=== PATIENT | male | born 1965 | race Asian ===

== ENCOUNTER 2024-10-07 12:05 | Emergency (ER) | payer MEDICAID, SELFPAY ==
[2024-10-07 12:06] VITALS: BMI 26.5
[2024-10-07 12:48] VITALS: BP 164/102; PULSE 142; RESP 20; TEMP 38.3; O2SAT 97; BMI 26.3
--- NOTE | 2024-10-07 12:58 | XR_ITS ---
Examination: PA lateral chest 2 views Technique: Upright PA lateral chest 2 views Exam date and time: October 07, 2024 1310 hrs. Comparison October 11, 2023 Indications: Coughing today Findings: Moderate enlargement left ventricle Ectatic enlarged thoracic aorta Prominent central pulmonary vasculature No lobar pneumonia Orthopedic screws overlie both shoulders with advanced right glenohumeral joint osteoarthritis Impression: Moderate enlargement left ventricle No lobar pneumonia or mayra pulmonary edema
--- NOTE | 2024-10-07 13:02 | PD.EDURI ---
Upper Respiratory Inf. RME/HPI General Chief Complaint: Flu Like Symptoms Stated Complaint: HEADACHE FEVER BODYACHE Time Seen by Provider: 10/07/24 12:28 Arrival date/time: 10/07/24 12:05 RME / HPI RME / HPI Narrative: 59-year-old male patient with significant history of congestive heart failure hypertension, came in for evaluation regarding flulike symptoms. Patient has been having headache, sore throat, nasal congestion, nonproductive cough, fever, for the last 2 days. Patient also complained of bodyaches. Denies any ill contacts. Denies any other complaints denies any swelling to the bilateral leg. Denies any shortness of breath. Denies any orthopnea or dyspnea on exertion. Related Data Previous Rx's ?Medication ?Instructions ?Recorded carvedilol 25 mg tablet (Coreg) 25 mg PO Q12H #60 tabs 09/28/23 dapagliflozin propanediol 5 mg 10 mg (2 x 5 mg) PO QAM #30 tabs 09/28/23 tablet (Farxiga) lisinopril 20 mg tablet 20 mg PO QDAY #30 tabs 09/28/23 furosemide 20 mg tablet (Lasix) 20 mg PO QAM #30 tabs 10/02/23 Allergies Allergy/AdvReac Type Severity Reaction Status Date / Time No Known Allergies Allergy Verified 10/07/24 12:07 Review of Systems Review of Systems Narrative Review of Systems: Review of system reviewed and within normal limits except mentioned in HPI ED Exam Narrative Physical exam: VITAL SIGNS: Reviewed. GENERAL APPEARANCE: Alert and interactive, follows commands, no acute distress, HEAD AND FACE: Non-traumatic. ENT: PERRL, pink conjunctivitis, eyelid no trauma, Mucous membrane moist. NECK: Supple, nontender, no nuchal rigidity. CHEST: No tenderness, no crepitus, no paradoxical movement, no retractions. LUNGS: Clear, well ventilated, symmetric, no rales, no wheezing, no ronchi, no stridor, good breath sounds bilaterally. HEART: Regular rate, regular rhythm, no murmur, no gallops. ABDOMEN: Soft, positive bowel sounds, nondistended, no guarding, nontender, no rebound, no masses, RECTAL: Deferred. GENITAL: Deferred. NEUROLOGICAL: Gross motor function intact sensory function intact, Appropriate for age. MUSCULOSKELETAL: low back nontender, full range of motion. EXTREMITIES: Nontender, full range of motion. SKIN: Color pink, dry, no rash, no lacerations, no abrasions, no contusions. LYMPHATICS: Deferred. Course Quality Measures none Orders Category Date Time Status Bedside COVID-19 Antigen Test NOW Care 10/07/24 13:01 Completed Bedside Influenza A&B Antigen Test NOW Care 10/07/24 13:01 Completed XR chest 2V Stat Exams 10/07/24 12:58 Completed Acetaminophen Tab [Tylenol ES Tab] Med 10/07/24 13:01 Discontinued 1,000 mg PO X1 ONE Oseltamivir [Tamiflu] Med 10/07/24 14:41 Discontinued 75 mg PO X1 ONE predniSONE Med 10/07/24 13:01 Discontinued 60 mg PO X1 ONE Vital Signs Vital signs: Vital Signs Temperature 100.9 F H 10/07/24 12:48 Pulse Rate 142 H 10/07/24 12:48 Respiratory Rate 20 10/07/24 12:48 Blood Pressure 164/102 H 10/07/24 12:48 Pulse Oximetry (%) 97 10/07/24 12:48 Oxygen Delivery Method Room Air 10/07/24 12:48 Upper Respiratory Infection MDM Narrative MDM Narrative:: 59-year-old male patient with significant history of congestive heart failure hypertension, came in for evaluation regarding flulike symptoms. Patient has been having headache, sore throat, nasal congestion, nonproductive cough, fever, for the last 2 days. Patient also complained of bodyaches. Denies any ill contacts. Denies any other complaints denies any swelling to the bilateral leg. Denies any shortness of breath. Denies any orthopnea or dyspnea on exertion. Patient tested positive for influenza. Patient eloped from the emergency room Patient data External records reviewed:: None Clinical information provided by:: patient Social determinants that could affect healthcare access:: none Patient has the following chronic illnesses:: Congestive heart failure hypertension How is presenting disease/condition affected by chronic disease/condition?: exacerbated by Evaluation data The following diagnostics were reviewed and interpreted by me:: lab results and radiology exam(s) Lab and/or radiology exams considered but not ordered:: None tested plus Interpretation Summary: Due for influenza. Chest x-ray came back unremarkable. Medications / Prescriptions Medications or Prescriptions considered but not ordered:: None Medication administrations:: Medication Administration History Discontinued Medications Acetaminophen (Acetaminophen 500 Mg Tablet) 1,000 mg PO X1 ONE Stop: 10/07/24 13:02 Last Admin: 10/07/24 13:59 Dose: 1,000 mg Documented By: Oseltamivir Phosphate (Oseltamivir 75 Mg Capsule) 75 mg PO X1 ONE Stop: 10/07/24 14:42 Last Admin: 10/07/24 16:25 Dose: Not Given Documented By: Non-Admin Reason: Other, see note Prednisone (Prednisone 20 Mg Tablet) 60 mg PO X1 ONE Stop: 10/07/24 13:02 Last Admin: 10/07/24 13:59 Dose: 60 mg Documented By: Tamiflu prednisone and Tylenol Consultations Consultation(s) initiated? (list below): No Diagnosis Upper Respiratory Differential Diagnosis: upper respiratory infection, viral infection and influenza Most likely diagnosis given after review of the tests above:: Influenza Admission Indicated Admission indicated?: not indicated ([facility]op[facility]) Admission Request Was there a request for admission?: No Disposition Plan Disposition Plan: other (specify) Discharge Plan Plan Patient Disposition: Elopement Prescriptions/Referrals Prescriptions/Med Rec: No Action Farxiga 5 mg Tablet 10 mg PO QAM Qty: 30 3RF lisinopril 20 mg tablet 20 mg PO QDAY Qty: 30 3RF Hold Instructions: Resume on 10/05/23. carvedilol [Coreg] 25 mg tablet 25 mg PO Q12H Qty: 60 3RF Rx Instructions: must administer with a meal/food furosemide [Lasix] 20 mg tablet 20 mg PO QAM Qty: 30 0RF Referrals: Chris Gonzales PA-C [Primary Care Provider] - In 1 week Problem List Clinical Impression: Influenza Patient/Caregiver Discharge Instructions Print Language: Venezuelan
[2024-10-07 13:59] VITALS: TEMP 38.3
[2024-10-07] MEDS: ACETAMINOPHEN 500 MG TABLET 1000 MG PO (13:59)
[2024-10-07] MEDS: predniSONE 20 MG TABLET 60 MG PO (13:59)
--- NOTE | 2024-10-07 15:45 | PC.NURSE ---
called from lobby for re-eval and no answer
== END 2024-10-07 16:26 | disposition left against medical advice (07) ==
LOC: SERX 13:01
PROVIDERS: Emergency Provider Emergency Medicine; PCP Physician Assistant
DX: J11.1 Influenza due to unidentified influenza virus with other respiratory manifestations (principal); I11.0 Hypertensive heart disease with heart failure; I50.9 Heart failure, unspecified
CPT/HCPCS: 71046; 87400; 87811; 99281; J7512; A9270

== ENCOUNTER 2024-12-12 06:22 | Emergency (ER) | payer MEDICAID, SELFPAY ==
[2024-12-12 06:23] VITALS: BMI 28.3
--- NOTE | 2024-12-12 06:37 | XR_ITS ---
Examination: Foot, left, 3 views Technique: AP, oblique, lateral views foot, 3 views Date and time of exam: December 12, 2024, 0701 hours INDICATIONS: Twisting injury to the foot 2 days ago, foot pain FINDINGS: Prominent hallux valgus bunion deformity Mild subluxation at the proximal interphalangeal joint fifth digit Erosion distal first metatarsal No acute fracture IMPRESSION: No acute fracture Erosion distal first metatarsal, seen with osteomyelitis or gouty arthropathy, clinical correlation advised Subluxation at the interphalangeal joint fifth digit which may be chronic
--- NOTE | 2024-12-12 06:37 | XR_ITS ---
EXAMINATION: Ankle, left 3 views . Technique: Ankle AP, oblique, lateral 3 views Date and time of exam: December 12, 2024, 0710 hours INDICATIONS: Twisting injury to the ankle 2 days ago, ankle pain. FINDINGS: Lateral malleolar soft tissue swelling. No fracture or dislocation IMPRESSION: No fracture or dislocation
--- NOTE | 2024-12-12 06:38 | PD.EDANKLE ---
Lower Extremity Injury RME/HPI General Chief Complaint: Ankle/Foot Injury Stated Complaint: L ankle injury Time Seen by Provider: 12/12/24 06:24 Source: patient Arrival date/time: 12/12/24 06:22 59-year-old male with a history of congestive heart failure and hypertension presents to the emergency room with a chief complaint of tenderness and pain to his left ankle and foot after rolling it while getting off his truck this morning. Mode of arrival: ambulatory Limitations: no limitations Related Data Previous Rx's ?Medication ?Instructions ?Recorded carvedilol 25 mg tablet (Coreg) 25 mg PO Q12H #60 tabs 09/28/23 dapagliflozin propanediol 5 mg 10 mg (2 x 5 mg) PO QAM #30 tabs 09/28/23 tablet (Farxiga) lisinopril 20 mg tablet 20 mg PO QDAY #30 tabs 09/28/23 Held on 10/02/23. Instructions: Resume on 10/05/23. furosemide 20 mg tablet (Lasix) 20 mg PO QAM #30 tabs 10/02/23 Allergies Allergy/AdvReac Type Severity Reaction Status Date / Time No Known Allergies Allergy Verified 12/12/24 06:30 Review of Systems Review of Systems Systems Reviewed: All systems reviewed, normal except as documented Constitutional Constitutional: Reports system reviewed and no additional complaints, except as documented, Denies fatigue, Denies fever(s), Denies headache(s) and Denies weakness Eyes Eyes: Reports system reviewed and no additional complaints, except as documented, Denies blurry vision and Denies change in vision ENT Ears, Nose, Mouth, and Throat: Reports system reviewed and no additional complaints, except as documented, Denies otalgia, Denies headache(s), Denies nasal congestion, Denies throat swelling and Denies vertigo Cardiovascular Cardiovascular: Reports system reviewed and no additional complaints, except as documented, Denies chest pain, Denies dyspnea and Denies dyspnea on exertion Respiratory Respiratory: Reports system reviewed and no additional complaints, except as documented, Denies chest congestion, Denies cough, Denies dyspnea, Denies dyspnea on exertion and Denies wheezing Gastrointestinal Gastrointestinal: Reports system reviewed and no additional complaints, except as documented, Denies abdominal pain, Denies cramping, Denies nausea and Denies vomiting Genitourinary Genitourinary: Reports system reviewed and no additional complaints, except as documented, Denies dysuria and Denies hematuria Musculoskeletal Musculoskeletal: Reports system reviewed and no additional complaints, except as documented, Reports arthralgias, Denies back pain, Reports joint swelling and Reports limited range of motion Integumentary/Breasts Skin/Breast: Reports system reviewed and no additional complaints, except as documented and Denies wounds Neurologic Neurologic: Reports system reviewed and no additional complaints, except as documented, Denies confusion, Denies headache(s), Denies lack of coordination, Denies vertigo and Denies weakness Psychiatric Psychiatric: Reports system reviewed and no additional complaints, except as documented, Denies anxiety, Denies confusion, Denies depression, Denies paranoia, Denies suicidal ideation and Denies tactile hallucinations Endocrine Endocrine: Reports system reviewed and no additional complaints, except as documented and Denies fatigue Hematologic/Lymphatic Hematologic/Lymphatic: Reports system reviewed and no additional complaints, except as documented and Denies lymphadenopathy Allergic/Immunologic Allergic/Immunologic: Reports system reviewed and no additional complaints, except as documented, Denies throat swelling, Denies urticaria and Denies wheezing Past Medical History Past Medical History NEUROLOGIC: Negative Neurological Disorders CARDIAC: Positive Congestive Heart Failure, Cardiomyopathy, Edema and Hypertension; Negative Cardiac Disorders RESPIRATORY: Negative Chronic Obstructive Pulmonary Disease (COPD) GASTROINTESTINAL: Negative Gastrointestinal Disorders GENITOURINARY: Negative Renal Disease MUSCULOSKELETAL: Positive Arthritis ENDOCRINE: Negative Diabetes Mellitus Type 1 or Diabetes Mellitus Type 2 PSYCHO/SOCIAL: Positive Recreational Drug Use Social History SMOKING STATUS: Current some day smoker ED Exam General Limitations: Present no limitations General appearance: Present alert and in no apparent distress Head Head exam: Present atraumatic Eye Eye exam: Present normal appearance, PERRL and EOMI ENT ENT exam: Present normal exam, normal oropharynx and mucous membranes moist Neck Neck exam: Present normal inspection, full ROM and trachea midline Chest Chest inspection: Present normal inspection and symmetric chest wall rise Respiratory Respiratory exam: Present normal lung sounds bilaterally Cardiovascular Cardiovascular exam: Present regular rate, normal rhythm and normal heart sounds Abdominal Exam Abdominal exam: Present soft and normal bowel sounds Extremities Exam Extremities exam: Present normal inspection and full ROM Expanded Lower Extremity Exam Hip/Pelvis exam: Present normal inspection Upper leg exam: Present normal inspection Knee exam: Present normal inspection Lower leg exam: Present normal inspection Ankle exam: Present tenderness and swelling; Absent full ROM Foot/toe exam: Present tenderness and swelling; Absent full ROM Gait: observed and limited by pain Back Exam Back exam: Present normal inspection and full ROM Neurological Exam Neurological exam: Present alert, oriented X3 and CN II-XII intact Psychiatric Psychiatric exam: Present normal affect and normal mood Skin Skin exam: Present warm, dry, intact and normal color Course Quality Measures none Orders Category Date Time Status Crutches .NOW Care 12/12/24 11:01 Completed ash wrap [Splint / Immobilizer] STAT Care 12/12/24 06:37 Completed XR ankle comp LT min 3V Stat Exams 12/12/24 06:37 Completed XR foot comp LT min 3V Stat Exams 12/12/24 06:37 Completed HYDROcodone*/APAP 5/325 [[place] 5/325] Med 12/12/24 10:32 Discontinued 1 tab PO X1 ONE Ketorolac Inj [Toradol Inj] Med 12/12/24 06:37 Discontinued 30 mg IM X1 ONE cloNIDine HCL [Catapres] Med 12/12/24 06:41 Discontinued 0.1 mg PO X1 ONE Vital Signs Vital signs: Vital Signs Temperature 97.6 F 12/12/24 06:39 Pulse Rate 85 12/12/24 06:39 Respiratory Rate 19 12/12/24 06:39 Blood Pressure 171/120 H 12/12/24 06:39 Pulse Oximetry (%) 96 12/12/24 06:39 Oxygen Delivery Method Room Air 12/12/24 06:39 O2 saturation within normal limits Extremity Injury, Lower MDM Narrative MDM Narrative:: 59-year-old male with a history of congestive heart failure and hypertension presents to the emergency room with a chief complaint of tenderness and pain to his left ankle and foot after rolling it while getting off his truck this morning. Patient is hemodynamically stable and in no apparent distress Physical examination shows tenderness and mild swelling to the left ankle and foot. There are no obvious signs of deformities. The patient is able to ambulate but states there is pain. Patient has limited range of motion. X-ray of the ankle and the foot were completed and were negative for any acute fractures. The ankle was wrapped in an Ash wrap for comfort. Patient was discharged and educated to follow-up with primary care provider in the next 24 to 48 hours and return to the emergency room for any evidence of worsening signs or symptoms Patient data External records reviewed:: [facility] previous records Clinical information provided by:: patient Social determinants that could affect healthcare access:: none Patient has the following chronic illnesses:: Congestive heart failure, hypertension How is presenting disease/condition affected by chronic disease/condition?: uneffected by Evaluation data The following diagnostics were reviewed and interpreted by me:: lab results and radiology exam(s) Lab and/or radiology exams considered but not ordered:: Labs and radiology exams considered and ordered Interpretation Summary: X-ray of the left foot, x-ray of the left ankle-no acute fractures or dislocations Medications / Prescriptions Medications or Prescriptions considered but not ordered:: Medication given Medication administrations:: Medication Administration History Discontinued Medications Hydrocodone Bitart/Acetaminophen (Hydrocodone/Apap 5/325 Tablet) 1 tab PO X1 ONE Stop: 12/12/24 10:33 Last Admin: 12/12/24 10:46 Dose: 1 tab Documented By: LP Clonidine (Clonidine Hcl 0.1 Mg Tablet) 0.1 mg PO X1 ONE Stop: 12/12/24 06:42 Last Admin: 12/12/24 07:27 Dose: 0.1 mg Documented By: LP Ketorolac Tromethamine (Ketorolac Inj 60 Mg/2 Ml Vial) 30 mg IM X1 ONE Stop: 12/12/24 06:38 Last Admin: 12/12/24 07:26 Dose: 30 mg Documented By: LP Medication given Consultations Consultation(s) initiated? (list below): No Diagnosis Extremity Injury, Lower Differential Diagnosis: ankle sprain and strain and ankle fracture Most likely diagnosis given after review of the tests above:: Ankle sprain and strain Admission Indicated Admission indicated?: not indicated Admission Request Was there a request for admission?: No Disposition Plan Disposition Plan: Discharge Discharge Attestation Discharge Attestation: The patient and all family members were given an opportunity to ask questions and understood the discharge instructions. Discharge instructions specifically effects, indications for sooner follow up or return to the emergency department, and the expected course of current diagnosis. Patient condition: Stable Discharge Plan Plan Patient Disposition: HOME (Self Care) Disposition Comment: Stable Prescriptions/Referrals Prescriptions/Med Rec: No Action Farxiga 5 mg Tablet 10 mg PO QAM Qty: 30 3RF lisinopril 20 mg tablet 20 mg PO QDAY Qty: 30 3RF carvedilol [Coreg] 25 mg tablet 25 mg PO Q12H Qty: 60 3RF Rx Instructions: must administer with a meal/food furosemide [Lasix] 20 mg tablet 20 mg PO QAM Qty: 30 0RF Referrals: Chris Gonzales PA-C [Primary Care Provider] - In 1 week Problem List Clinical Impression: Ankle sprain Patient/Caregiver Discharge Instructions Education Materials: ED ASH Wrap, ED Ankle Sprain (Adult) Additional Instructions: Please follow-up with your primary care provider in the next 24 to 48 hours. There is no fracture or dislocation to your ankle. There is an incidental finding of some erosion to the bone in your foot. Please follow-up with your primary care provider for further workup For any evidence of worsening signs or symptoms return the emergency room immediately Print Language: Syrian Stand Alone Forms: Jaqueline Award Info., Patient Portal Info Letter PA/LILIAM Supervising Physician EARLINE/LILIAM Supervising Physician: Dr. Jara
[2024-12-12 06:39] VITALS: BP 171/120; PULSE 85; RESP 19; TEMP 36.4; O2SAT 96
[2024-12-12] MEDS: KETOROLAC INJ 60 MG/2 ML VIAL 30 MG IM (07:26)
[2024-12-12 07:27] VITALS: BP 171/120; PULSE 85
[2024-12-12] MEDS: cloNIDine HCL 0.1 MG TABLET PO (07:27)
[2024-12-12] MEDS: HYDROcodone/APAP 5/325 TABLET 1 TAB PO (10:46)
[2024-12-12 10:48] VITALS: BP 166/107; PULSE 80; RESP 16; TEMP 36.7; O2SAT 98
== END 2024-12-12 11:00 | disposition home or self-care (01) ==
PROVIDERS: Emergency Provider Emergency Medicine; PCP Physician Assistant
DX: S93.402A Sprain of unspecified ligament of left ankle, initial encounter (principal); X58.XXXA Exposure to other specified factors, initial encounter; I11.0 Hypertensive heart disease with heart failure; I50.9 Heart failure, unspecified
CPT/HCPCS: 73610; 73630; 96372; 99283; J1885; A9270

== ENCOUNTER 2025-01-20 | Emergency (ER) | payer MEDICAID, SELFPAY ==
[2025-01-20 00:01] VITALS: BMI 24.7
[2025-01-20 00:19] VITALS: BP 94/64; PULSE 96; RESP 18; TEMP 35.5; O2SAT 98
--- NOTE | 2025-01-20 00:33 | XR_ITS ---
Examination: CT cervical spine without contrast 2-D sagittal reconstructions 2-D coronal reconstructions 3-D reconstructions. Exam date and time:January 20, 2025 0114 hours INDICATIONS: Onset neck pain today CTDI:vol (mGy) 13.4 DLP: (mGycm) 283 Technique: Multiple 2 mm axial sections of the cervical spine have been obtained. The coronal and sagittal reconstructions have been obtained. 3-D reconstructions have been obtained. Low dose protocols were performed. One or more of the following dose reduction techniques were used; automated exposure control, adjustment of the mA and/or KV according to patient size, use of iterative reconstruction technique. Findings: Axial sections demonstrate intact base of the skull. C1 exhibit satisfactory relationship to the odontoid. No acute cervical vertebral body fracture seen. Alignment posterior spinous processes satisfactory. Moderate to advanced disc narrowing C4-C5, C5-C6, C6-C7 C3-C4 advanced right neural foraminal stenosis C4-C5 moderate bilateral neural foraminal stenosis C5-C6 moderate left neural foraminal stenosis Impression: No acute cervical fracture. Moderate to advanced degenerative disc disease C4-C5, C5-C6, C6-C7 C3-C4 advanced right neural foraminal stenosis C4-C5 moderate bilateral neural foraminal stenosis C5-C6 moderate left neural foraminal stenosis As clinically warranted, MRI cervical spine without contrast follow up would best assess full extent of soft tissue spinal stenosis
--- NOTE | 2025-01-20 00:33 | XR_ITS ---
Examination: Shoulder,right, 3 views Technique: Shoulder AP internal rotation, AP external rotation, Y view shoulder, 3 views Exam date and time :0158 hours INDICATIONS: Right shoulder pain today. FINDINGS: Advanced osteoarthritis glenohumeral joint, severe narrowing Orthopedic screw overlies the bony glenoid fossa No fracture No calcific tendinitis IMPRESSION: Advanced osteoarthritis glenohumeral joint
[2025-01-20 02:08] LABS: D-Dimer < 250 ng/mL (<600)
--- NOTE | 2025-01-20 02:30 | PRELIM_ITS ---
CT scan of the cervical spine without intravenous contrast (axial sections with sagittal and coronal reformats). January 20, 2025 0114 hours Clinical History: neck pain Comparison: None Findings: There is no fracture, traumatic subluxation or other acute osseous abnormality of the cervical spine. There is straightening of the cervical spine. There are degenerative change in the cervical spine. There is mild degenerative anterolisthesis of C2 on C3, C3 on C4 and C4 on C5. The prevertebral soft tissues are unremarkable. Impression: No acute osseous abnormality of the cervical spine. Straightening of the cervical spine may indicate muscle spasm. Degenerative change. Report Electronically Signed By: Paco Arizmendi 01/20/2025 2:30:02 AM [EST]
--- NOTE | 2025-01-20 02:36 | EDNOTE_ITS ---
Upper Extremity Injury RME/HPI General Chief Complaint: Extremity Injury, Upper Stated Complaint: RIGHT SHOULDER PAIN Time Seen by Provider: 01/20/25 00:26 Arrival date/time: 01/20/25 00:00 This is a case of 59-year-old male who came in in the emergency room due to right shoulder pain radiating to his right side of the neck and right arm patient denies any injury or trauma denies any numbness weakness tingling sensation due to persistence of the symptoms this patient decided to start consult here in the emergency room Limitations: no limitations Related Data Previous Rx's ?Medication ?Instructions ?Recorded carvedilol 25 mg tablet (Coreg) 25 mg PO Q12H #60 tabs 09/28/23 dapagliflozin propanediol 5 mg 10 mg (2 x 5 mg) PO QAM #30 tabs 09/28/23 tablet (Farxiga) lisinopril 20 mg tablet 20 mg PO QDAY #30 tabs 09/28 Held on 10/02/23. Instructions: Resume on 10/05/23. furosemide 20 mg tablet (Lasix) 20 mg PO QAM #30 tabs 10/02/23 cyclobenzaprine 10 mg tablet 10 mg PO BID PRN muscle s pasm #10 01/20/25 tabs ibuprofen 600 mg tablet 600 mg PO Q8H PRN pain #20 t abs 01/20/25 Allergies Allergy/AdvReac Type Severity Reaction Status Date / Time No Known Allergies Allergy Verified 12/12/24 06:30 Review of Systems Review of Systems Systems Reviewed: All systems reviewed, normal except as documented Constitutional Constitutional: Reports system reviewed and no additional complaints, except as documented Cardiovascular Cardiovascular: Reports system reviewed and no additional complaints, except as documented Respiratory Respiratory: Reports system reviewed and no additional complaints, except as documented Musculoskeletal Musculoskeletal: Reports system reviewed and no additional complaints, except as documented, Reports as per HPI, Denies abnormal gait, Denies atrophy, Denies back pain, Denies joint swelling, Denies limited range of motion, Denies muscle cramps, Denies numbness, Denies radiating pain into limb and Denies stiffness Neurologic Neurologic: Reports system reviewed and no additional complaints, except as documented, Denies abnormal gait and Denies numbness Past Medical History Past Medical History NEUROLOGIC: Negative Neurological Disorders CARDIAC: Positive Congestive Heart Failure, Cardiomyopathy, Edema and Hypertension; Negative Cardiac Disorders RESPIRATORY: Negative Chronic Obstructive Pulmonary Disease (COPD) GASTROINTESTINAL: Negative Gastrointestinal Disorders GENITOURINARY: Negative Renal Disease MUSCULOSKELETAL: Positive Arthritis ENDOCRINE: Negative Diabetes Mellitus Type 1 or Diabetes Mellitus Type 2 PSYCHO/SOCIAL: Positive Recreational Drug Use Social History SMOKING STATUS: Current every day smoker ED Exam General Limitations: Present no limitations General appearance: Present alert and in no apparent distress Head Head exam: Present atraumatic Eye Eye exam: Present normal appearance, PERRL and EOMI ENT ENT exam: Present normal exam, normal oropharynx and mucous membranes moist Neck Neck exam: Present normal inspection, full ROM, trachea midline and other; Absent tenderness, meningismus, lymphadenopathy or thyromegaly Expanded Neck Exam Neck exam focused ED: Absent midline tenderness, paraspinal tenderness, tenderness (other), tracheal deviation, anterior neck swelling or thyroid enlargement Chest Chest inspection: Present normal inspection and symmetric chest wall rise Respiratory Respiratory exam: Present normal lung sounds bilaterally Cardiovascular Cardiovascular exam: Present regular rate, normal rhythm and normal heart sounds Abdominal Exam Abdominal exam: Present soft and normal bowel sounds Extremities Exam Extremities exam: Present normal inspection and full ROM Expanded Upper Extremity Exam Shoulder exam: Present normal inspection and full ROM; Absent tenderness, swelling, abrasion, laceration, ecchymosis, deformity, crepitus, dislocation, erythema or tenderness over AC joint Back Exam Back exam: Present normal inspection and full ROM; Absent tenderness, CVA tenderness (R), CVA tenderness (L), muscle spasm, paraspinal tenderness, vertebral tenderness, rashes, sciatic notch tenderness (R), sciatic notch tenderness (L), straight leg raise (R) or straight leg raise (L) Neurological Exam Neurological exam: Present alert, oriented X3, CN II-XII intact, normal gait and reflexes normal; Absent motor sensory deficit Psychiatric Psychiatric exam: Present normal affect and normal mood Skin Skin exam: Present warm, dry, intact and normal color Course Quality Measures none Orders Category Date Time Status CT cervical spine wo con Stat Exams 01/20/25 00:33 Taken XR shoulder RT min 2V Stat Exams 01/20/25 00:33 Taken D-Dimer Stat Lab 01/20/25 01:35 Completed HYDROcodone*/APAP 5/325 [[place] 5/325] Med 01/20/25 02:36 Once 1 tab PO X1 ONE Ketorolac Inj [Toradol Inj] Med 01/20/25 02:36 Once 30 mg IM X1 ONE Vital Signs Vital signs: Vital Signs Temperature 96 F L 01/20/25 00:19 Pulse Rate 96 01/20/25 00:19 Respiratory Rate 18 01/20/25 00:19 Blood Pressure 94/64 01/20/25 00:19 Pulse Oximetry (%) 98 01/20/25 00:19 Oxygen Delivery Method Room Air 01/20/25 00:19 Oxygen saturation 98% WNL Extremity Injury MDM Narrative MDM Narrative:: This is a case of 59-year-old male who came in in the emergency room due to right shoulder pain radiating to his right side of the neck and right arm patient denies any injury or trauma denies any numbness weakness tingling sensation due to persistence of the symptoms this patient decided to start consult here in the emergency room physical examination patient is awake alert oriented not in distress nontoxic looking no signs and symptoms of cauda equina no numbness no weakness no tingling sensation incontinence to urine or stool no signs and symptoms of DVT patient D-dimer is negative no swelling no claudication physical examination patient is awake alert oriented not in distress nontoxic looking afebrile not tachycardic not tachypneic mild tenderness noted on the right shoulder no tenderness on the right neck no swelling no crepitation no deformity ROM intact motor or sensory reflex were normal capillary refill less than 2 seconds patient x-ray of the shoulder is normal no fracture no dislocation patient CT scan of the cervical noted to have DDD cervical and muscle spasm patient was given Toradol and [place] here in the emergency room patient pain was improved and resolved patient will follow-up with PCP in 2 days for evaluation and to be referred to neurosurgeon for possible MRI to her to rule out herniated disc and osteoarthritis patient was advised for any worsening symptoms recurrence of symptoms or any emergent concern they need to return the emergency room immediately or call 911 patient agreed with the treatment plan and discharge patient understood the discharge instruction patient discharged with stable condition and steady gait Patient data External records reviewed:: [facility] previous records Clinical information provided by:: patient Social determinants that could affect healthcare access:: none Patient has the following chronic illnesses:: No chronic illness How is presenting disease/condition affected by chronic disease/condition?: no chronic disease Evaluation data The following diagnostics were reviewed and interpreted by me:: lab results and radiology exam(s) Lab and/or radiology exams considered but not ordered:: Reviewed Interpretation Summary: Normal Medications / Prescriptions Medications or Prescriptions considered but not ordered:: Given Medication administrations:: Medication Administration History Hydrocodone Bitart/Acetaminophen (Hydrocodone/Apap 5/325 Tablet) 1 tab PO X1 ONE Stop: 01/20/25 02:37 Ketorolac Tromethamine (Ketorolac Inj 60 Mg/2 Ml Vial) 30 mg IM X1 ONE Stop: 01/20/25 02:37 Given Consultations Consultation(s) initiated? (list below): No Diagnosis Upper Extremity Injury Differential Diagnosis: sprain and strain of wrist, dislocation of shoulder and fracture of humerus Most likely diagnosis given after review of the tests above:: Muscle spasm Admission Indicated Admission indicated?: not indicated Explain why admission is indicated or not indicated:: Not indicated Admission Request Was there a request for admission?: No Disposition Plan Disposition Plan: Discharge Discharge Attestation Discharge Attestation: The patient and all family members were given an opportunity to ask questions and understood the discharge instructions. Discharge instructions specifically effects, indications for sooner follow up or return to the emergency department, and the expected course of current diagnosis. Patient condition: Stable Discharge Plan Plan Patient Disposition: HOME (Self Care) Discharge Disposition comment: Stable Prescriptions/Referrals Prescriptions/Med Rec: New ibuprofen 600 mg tablet 600 mg PO Q8H PRN (Reason: pain) Qty: 20 0RF cyclobenzaprine 10 mg tablet 10 mg PO BID PRN (Reason: muscle spasm) Qty: 10 0RF No Action Farxiga 5 mg Tablet 10 mg PO QAM Qty: 30 3RF lisinopril 20 mg tablet 20 mg PO QDAY Qty: 30 3RF carvedilol [Coreg] 25 mg tablet 25 mg PO Q12H Qty: 60 3RF Rx Instructions: must administer with a meal/food furosemide [Lasix] 20 mg tablet 20 mg PO QAM Qty: 30 0RF Referrals: Chris Gonzales PA-C [Primary Care Provider] - In 1 week Problem List Clinical Impression: DDD (degenerative disc disease), cervical, Muscle spasm, Pain in right shoulder Patient/Caregiver Discharge Instructions Education Materials: ED JANIE Wrap, ED Muscle Spasm, ED Neck Pain No Trauma, ED Neck Spasm, No Trauma Additional Instructions: Follow-up with your primary care physician in 2 days for reevaluation and to be referred to a neurosurgeon for possible MRI to rule out herniated disks and to report to him pain management doctor for pain control worsening symptoms or any emergent concerns such as numbness weakness tingling sensation incontinence to urine or stool call 911 or go to the nearest emergency room ice pack and warm compress as needed for pain take your medication as directed Print Language: Samoan Stand Alone Forms: Jaqueline Award Info., Patient Portal Info Letter PA/LILIAM Supervising Physician PA/LILIAM Supervising Physician: dr shelton
[2025-01-20] MEDS: HYDROcodone/APAP 5/325 TABLET 1 TAB PO (02:59)
[2025-01-20] MEDS: KETOROLAC INJ 60 MG/2 ML VIAL 30 MG IM (03:00)
[2025-01-20 03:05] VITALS: BP 121/81; PULSE 73; RESP 18; TEMP 36.4; O2SAT 100
== END 2025-01-20 03:29 | disposition home or self-care (01) ==
PROVIDERS: Nurse Practitioner Family; Emergency Provider Emergency Medicine; PCP Physician Assistant
DX: M50.121 Cervical disc disorder at C4-C5 level with radiculopathy (principal); M62.830 Muscle spasm of back; M25.511 Pain in right shoulder
CPT/HCPCS: 36415; 72125; 73030; 85379; 96372; 99284; J1885; A9270

== ENCOUNTER 2025-05-04 03:11 | Inpatient (IN) | payer MEDICAID, SELFPAY ==
[2025-05-04] VITALS (31 sets, daily range): BP systolic 91–211; BP diastolic 67–149; PULSE 58–124; RESP 8–40; TEMP 36.1–37.1; O2SAT 92–100; BMI 27.3; BMI 26.8
--- NOTE | 2025-05-04 03:29 | EKG_ITS ---
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1965 Requested By: ED Temporary Provider Order Number: [id number] Reading MD: ED Temporary Provider Measurements Intervals [place] Rate: 117 P: 56 SC: 162 QRS: -41 QRSD: 93 T: 115 QT: 326 QTc: 456 Interpretive Statements SINUS TACHYCARDIA LEFT AXIS DEVIATION [QRS AXIS < -30] ST DEVIATION AND MODERATE T-WAVE ABNORMALITY, CONSIDER LATERAL ISCHEMIA [-0.1+ mV T-WAVE IN I/aVL/V5/V6] Compared to ECG 09/30/2023 15:32:26 Left-axis deviation now present T-wave abnormality now present Possible ischemia now present Sinus rhythm no longer present Left ventricular hypertrophy no longer present ST (T wave) deviation no longer present Myocardial infarct finding no longer present /store/S0/[id number]/ecg/[id number].pdf
--- NOTE | 2025-05-04 03:45 | EDNOTE_ITS ---
ED SOB =RME/HPI General Chief Complaint: Shortness of Breath/Dyspnea Stated Complaint: DIFFICULTY BREATHING; HX CHF Time Seen by Provider: 05/04/25 03:50 Arrival date/time: 05/04/25 03:11 RME / HPI RME / HPI Narrative: See [facility] for Dr. Buck's HPI Documentation. Related Data Previous Rx's ?Medication ?Instructions ?Recorded carvedilol 25 mg tablet (Coreg) 25 mg PO Q12H #60 tabs 09/28/23 dapagliflozin propanediol 5 mg 10 mg (2 x 5 mg) PO QAM #30 tabs 09/28/23 tablet (Farxiga) lisinopril 20 mg tablet 20 mg PO QDAY #30 tabs 09/28 Held on 10/02/23. Instructions: Resume on 10/05/23. furosemide 20 mg tablet (Lasix) 20 mg PO QAM #30 tabs 10/02/23 cyclobenzaprine 10 mg tablet 10 mg PO BID PRN muscle s pasm #10 01/20/25 tabs ibuprofen 600 mg tablet 600 mg PO Q8H PRN pain #20 t abs 01/20/25 Allergies Allergy/AdvReac Type Severity Reaction Status Date / Time No Known Allergies Allergy Verified 05/04/25 03:14 Review of Systems Review of Systems Systems Reviewed: All systems reviewed, normal except as documented Past Medical History Past Medical History CARDIAC: Positive Congestive Heart Failure, Cardiomyopathy, Edema and Hypertension MUSCULOSKELETAL: Positive Arthritis PSYCHO/SOCIAL: Positive Recreational Drug Use Social History SMOKING STATUS: Current some day smoker ED Exam Narrative Physical exam: See [facility] for Dr. Buck's Physical Exam Documentation. Course Course Course Narrative: CXR was ordered for determining the etiology of shortness of breath. Quality Measures none Orders Category Date Time Status Bedside COVID-19 Antigen Test NOW Care 05/04/25 03:58 Active Bedside Influenza A&B Antigen Test NOW Care 05/04/25 03:58 Completed EKG (ED ONLY) *Do not use* NOW Care 05/04/25 03:29 Completed Saline [Insert IV] NOW Care 05/04/25 03:58 Active Straight [In and Out Catheter] X1 Care 05/04/25 03:58 Active Referral Respiratory Therapy Stat Cons 05/04/25 04:12 Active EKG (ED Only) Stat Exams 05/04/25 03:29 Draft XR chest 1V portable Stat Exams 05/04/25 03:58 Taken ABG [Arterial Blood Gas] Stat Lab 05/04/25 03:59 Ordered Alcohol, Blood Medical Stat Lab 05/04/25 03:59 Received BNP [B-Type Natriuretic Peptide] Stat Lab 05/04/25 04:15 Received Bilirubin,Direct Stat Lab 05/04/25 03:59 Received Blood Culture (Lab) Stat Lab 05/04/25 04:10 Received CBC Stat Lab 05/04/25 04:15 Completed CMP [Comprehensive Metabolic Panel] Stat Lab 05/04/25 03:59 Received CRP [C-Reactive Protein] Stat Lab 05/04/25 03:59 Received D-Dimer Stat Lab 05/04/25 04:15 Received Drug Screen,Urine Stat Lab 05/04/25 03:59 Ordered ESR [Sed Rate (ESR)] Stat Lab 05/04/25 04:15 Completed Lactate (Lactic Acid) Stat Lab 05/04/25 04:15 Completed Lipase Stat Lab 05/04/25 03:59 Received Magnesium Stat Lab 05/04/25 03:59 Received Procalcitonin Stat Lab 05/04/25 03:59 Received TSH [Thyroid Stimulating Hormone] Stat Lab 05/04/25 03:59 Received Troponin I Stat Lab 05/04/25 03:59 Received UA, C/S IF [Urinalysis, C/S if Indicated] Stat Lab 05/04/25 04:00 Ordered Furosemide Inj [Lasix Inj] Med 05/04/25 03:58 Discontinued 80 mg IVP X1 ONE Metoprolol Tartrate [Lopressor] Med 05/04/25 04:13 Discontinued 50 mg PO X1 ONE Morphine Inj Med 05/04/25 03:58 Discontinued 2 mg IVP X1 ONE Nitroglycerin Oint 2% [Nitro-paste Oint 2%] Med 05/04/25 03:58 Discontinued 2 inch TOP X1 ONE cloNIDine HCL [Catapres] Med 05/04/25 04:13 Discontinued 0.2 mg PO X1 ONE BiPAP / CPAP NOW RT 05/04/25 04:12 Active Vital Signs Vital signs: Vital Signs Temperature 98.8 F 05/04/25 03:22 Pulse Rate 124 H 05/04/25 03:22 Respiratory Rate 36 H 05/04/25 03:22 Blood Pressure 197/127 H 05/04/25 03:22 Pulse Oximetry (%) 95 05/04/25 03:22 Oxygen Delivery Method Room Air 05/04/25 03:22 Shortness of Breath / Dyspnea MDM Narrative MDM Narrative:: Scribe Attestation: I, Suzanne Peralta, am scribing for and in the presence of Dr. Buck. This section includes all my notes and documentations, including HPI, PE, and ED course. Ernesto Buck MD HPI: 59 y/o male with Hx of Recreational Drug Use, CHF, Cardiomyopathy, and HTN presents with worsening dyspnea for over a week. Has not been compliant with Lasix for a month. No other complaints. ROS: All negative except as documented in HPI. Physical Exam: General: Alert and oriented. In severe respiratory distress. High BP noted. Eyes: Conjunctivae and lids clear. ENT: No nasal congestion. Neck: Supple. No carotid bruit. No JVD. Heart: Sinus tachycardia noted. Lungs: In severe respiratory distress. Decreased air movement with diffuse Rales. Abdomen: Soft and nontender. Back: No CVA tenderness. Skin: Warm and dry. Neuro: Alert and oriented X 3. I ordered BiPAP, Lasix 80 mg IV, morphine 2 mg IV, topical NTG, oral clonidine 0.2 mg, oral metoprolol 50 mg, and diagnostic tests. At 6 AM on 05/04/2025, the care of the patient was transferred to Dr. Kirkland. Ernesto Buck MD Patient data External records reviewed:: [facility] previous records (Reviewed prior ED records from 01/20/25. Patient was seen for DDD (degenerative disc disease), cervical.) Clinical information provided by:: patient Social determinants that could affect healthcare access:: substance use Patient has the following chronic illnesses:: Congestive Heart Failure, Cardiomyopathy, Edema, Hypertension, Arthritis, Recreational Drug Use How is presenting disease/condition affected by chronic disease/condition?: exacerbated by Evaluation data The following diagnostics were reviewed and interpreted by me:: lab results and EKG tracing(s) (My interpretation of the EKG is: Sinus tachycardia (117 bpm) with nonspecific ST-T changes. Ernesto Buck MD) Lab and/or radiology exams considered but not ordered:: None Interpretation Summary: Diagnostic tests are pending. Medications / Prescriptions Medications or Prescriptions considered but not ordered:: None Medication administrations:: Medication Administration History Discontinued Medications Clonidine (Clonidine Hcl 0.1 Mg Tablet) 0.2 mg PO X1 ONE Stop: 05/04/25 04:14 Last Admin: 05/04/25 04:33 Dose: 0.2 mg Documented By: DANITA Furosemide (Furosemide Inj 10 Mg/Ml 4ml Vial) 80 mg IVP X1 ONE Stop: 05/04/25 03:59 Last Admin: 05/04/25 04:31 Dose: 80 mg Documented By: DANITA Metoprolol Tartrate (Metoprolol Tartrate 25 Mg Tablet) 50 mg PO X1 ONE Stop: 05/04/25 04:14 Last Admin: 05/04/25 04:33 Dose: 50 mg Documented By: DANITA Morphine Sulfate (Morphine Sulf Inj 10 Mg/Ml Vial) 2 mg IVP X1 ONE Stop: 05/04/25 03:59 Last Admin: 05/04/25 04:32 Dose: 2 mg Documented By: DANITA Nitroglycerin (Nitroglycerin Oint 2% 1 Inch Packet) 2 inch TOP X1 ONE Stop: 05/04/25 03:59 Last Admin: 05/04/25 04:32 Dose: 2 inch Documented By: DANITA I ordered BiPAP, Lasix 80 mg IV, morphine 2 mg IV, topical NTG, oral clonidine 0.2 mg, oral metoprolol 50 mg. Consultations Consultation(s) initiated? (list below): No Diagnosis Shortness of Breath Differential Diagnosis: acute exacerbation of chronic obstructive airways disease, congestive heart failure, community acquired pneumonia, asthma with exacerbation and pulmonary embolism Most likely diagnosis given after review of the tests above:: Diagnostic tests are pending. Admission Indicated Admission indicated?: not indicated Explain why admission is indicated or not indicated:: Diagnostic tests are pending. Admission Request Was there a request for admission?: No Disposition Plan Disposition Plan: other (specify) (Signed out to Dr. Kirkland at 6 AM.) Discharge Plan Prescriptions/Referrals Prescriptions/Med Rec: No Action Farxiga 5 mg Tablet 10 mg PO QAM Qty: 30 3RF lisinopril 20 mg tablet 20 mg PO QDAY Qty: 30 3RF carvedilol [Coreg] 25 mg tablet 25 mg PO Q12H Qty: 60 3RF Rx Instructions: must administer with a meal/food furosemide [Lasix] 20 mg tablet 20 mg PO QAM Qty: 30 0RF ibuprofen 600 mg tablet 600 mg PO Q8H PRN (Reason: pain) Qty: 20 0RF cyclobenzaprine 10 mg tablet 10 mg PO BID PRN (Reason: muscle spasm) Qty: 10 0RF Problem List Clinical Impression: Shortness of breath Patient/Caregiver Discharge Instructions Print Language: Romanian
--- NOTE | 2025-05-04 03:58 | XR_ITS ---
Examination: PA chest single view TECHNIQUE: Upright PA chest single view Date and time: May 04, 2025 0403 hours INDICATIONS: Shortness of breath today. FINDINGS: Mild enlargement cardiac contour. Mild vascular congestion including prominence of the central pulmonary vasculature. No lobar pneumonia or mayra pulmonary edema IMPRESSION: Mild enlargement cardiac contour Mild prominence pulmonary vasculature.
[2025-05-04 04:30] LABS: Lactate (Lactic Acid) 1.6 mMol/L (0.4-2.0)
[2025-05-04] MEDS: FUROSEMIDE INJ 10 MG/ML 4ML VIAL 80 MG IVP (04:31)
[2025-05-04] MEDS: MORPHINE SULF INJ 10 MG/ML VIAL 2 MG IVP (04:32)
[2025-05-04] MEDS: NITROGLYCERIN OINT 2% 1 INCH PACKET 2 INCH TOP (04:32)
[2025-05-04] MEDS: METOPROLOL TARTRATE 25 MG TABLET 50 MG PO (04:33)
[2025-05-04 04:38] LABS: Sed Rate (ESR) 31 mm/hr (0-20)
[2025-05-04 04:39] LABS: Basophils # (Auto) 0.1 Thou/mm3 (0.0-0.2); Basophils % (Auto) 1 % (0-2.5); Eosinophils # (Auto) 0.4 Thou/mm3 (0.0-0.5); Eosinophils % (Auto) 2 % (0-10); Hematocrit 50.3 % (41.0-53.0); Hemoglobin 16.2 g/dL (13.5-16.0); Immature Granulocytes Auto 0.07 Thou/mm3 (0.00-0.00); Lymphocytes # (Auto) 1.4 Thou/mm3 (1.0-4.8); Lymphocytes % (Auto) 9 % (10-50); Mean Corpuscular HGB Conc 32.2 g/dl (31.0-37.0); Mean Corpuscular Hemoglobin 28.6 pg (25.0-35.0); Mean Corpuscular Volume 89 fL (80-100); Monocytes # (Auto) 1.2 Thou/mm3 (0.0-0.8); Monocytes % (Auto) 8 % (0-12); Neutrophils # (Auto) 12.1 Thou/mm3 (1.8-7.7); Neutrophils % (Auto) 80 % (37-80); Nucleated Red Blood Cell # 0.00 Thou/mm3 (0.00-0.00); Nucleated Red Blood Cell % 0 /100 WBC (0); Platelet Count 313 Thou/mm3 (140-440); RDW Standard Deviation 45.7 fL (35.1-43.9); Red Blood Count 5.66 Miln/mm3 (4.50-5.90); White Blood Count 15.2 Thou/mm3 (3.8-10.6)
[2025-05-04 04:47] LABS: Collection Type, Urine Clean Catch; Squamous Epithelial Cell,Urine 0 /hpf (0-5)
[2025-05-04 04:53] LABS: Base Excess 1 (-3-3); HCO3 24 mEq/L (20-26); Inspired Oxygen, FIO2 30 %; O2 Saturation 94 % (91-98); PCO2 35 mmHg (32.0-48.0); PO2 71 mmHg (83-108); pH, Arterial 7.45 (7.35-7.45)
[2025-05-04 04:54] LABS: Allen Test Performed/OK; Puncture Site Right Radial
[2025-05-04 04:57] LABS: Bilirubin,Urine Negative (Negative); Blood,Urine Trace (Negative); Clarity,Urine Clear (Clear/Hazy); Color,Urine Colorless (Lt Yel-Yel); Culture Indicated,Urine Not Indicated; Glucose, Urine Negative (Negative); Ketones,Urine Negative (Negative); Leukocyte Esterase,Urine Negative (Negative); Nitrite,Urine Negative (Negative); PH,Urine 6.5 (5.0-7.0); Protein,Urine 1+ (Neg - Trace); RBC,Urine 3 /hpf (0-3); Specific Gravity,Urine 1.016 (1.001-1.035); Urobilinogen,Urine Negative mg/dL (0.0-1.0); WBC,Urine < 1 /hpf (0-5)
[2025-05-04 05:05] LABS: D-Dimer < 250 ng/mL (<600)
[2025-05-04 05:09] LABS: Alanine Aminotransferase 23 U/L (10-49); Albumin, Serum 4.3 gm/dL (3.4-4.8); Albumin/Globulin Ratio 1.5 (1.2-2.2); Alcohol, Blood Medical < 3.0 mg/dL (0-10.0); Alkaline Phosphatase 154 U/L (46-116); Anion Gap 12 (7-16); Aspartate Amino Transferase 26 U/L (0-34); B-Type Natriuretic Peptide 485 pg/mL (0-100); BUN/Creatinine Ratio 12 Ratio (12-20); Bilirubin,Direct < 0.1 mg/dL (0.0-0.3); Bilirubin,Total 0.3 mg/dL (0.3-1.2); Blood Urea Nitrogen 23 mg/dL (9-23); C-Reactive Protein 2.1 mg/dL (0.0-0.9); Calcium 9.6 mg/dL (8.3-10.6); Calcium (Corrected) 9.6 mg/dL (8.5-10.1); Carbon Dioxide 24.2 mMol/L (20.0-31.0); Chloride 105 mMol/L (98-107); Creatinine (Component) 1.9 mg/dL (0.6-1.3); Estimated Creatinine Clearance 33.3 mL/min (>60); Globulin 2.9 gm/dL (2.3-3.5); Glucose 121 mg/dL (74-106); Lipase 45 U/L (12-53); Magnesium 1.7 mg/dL (1.6-2.6); Osmolality,Calculated 285 (275-295); Potassium 3.7 mMol/L (3.4-5.1); Procalcitonin 0.15 ng/ml (0.0-0.49); Sodium 141 mMol/L (136-145); Thyroid Stimulating Hormone 2.63 uIU/mL (0.55-4.78); Total Protein 7.2 gm/dL (5.7-8.2); eGFR 40 See Note
[2025-05-04 05:09] LABS: Amphetamine/Methamp Scrn,U Positive (Negative); Barbiturate Screen,Urine Negative (Negative); Benzodiazepines Screen,Urine Negative (Negative); Benzoylecgonine Screen, Ur Negative (Negative); Fentanyl Screen,Urine Negative (Negative); Opiate Screen,Urine Negative (Negative); THC Screen,Urine Negative (Negative)
[2025-05-04 05:15] LABS: Troponin I 0.081 ng/mL (0.0-0.045)
--- NOTE | 2025-05-04 05:47 | PD.EDADDENDU ---
Emergency Room Addendum Addendum Narrative: Initially, care of the patient was transferred to Dr. Kirkland. But with the return of all diagnostic test results, I was able to finish the patient's ED visit. HPI: 59 y/o male with Hx of Recreational Drug Use, CHF, Cardiomyopathy, and HTN presents with worsening dyspnea for over a week. Has not been compliant with Lasix for a month. No other complaints. ROS: All negative except as documented in HPI. Physical Exam: General: Alert and oriented. In severe respiratory distress. High BP noted. Hypoxia noted. Eyes: Conjunctivae and lids clear. ENT: No nasal congestion. Neck: Supple. No carotid bruit. No JVD. Heart: Sinus tachycardia noted. Lungs: In severe respiratory distress. Decreased air movement with diffuse rales. Abdomen: Soft and nontender. Back: No CVA tenderness. Skin: Warm and dry. Neuro: Alert and oriented X 3. I reviewed all diagnostic test results. My interpretation of the EKG is?sinus tachycardia with nonspecific ST-T changes. My interpretation of the chest x-ray is increased vascular congestion. Blood tests and urine tests?remarkable for WBC 15.2, D-dimer < 250, Cr 1.9, Troponin 0.081, BNP 482. Covid/ Influenza negative Diagnoses include: Respiratory failure CHF NSTEMI Hypertensive emergency WILMA on CKD Methamphetamine use Treatment here included? Oxygen Oral metoprolol 50 mg Oral clonidine 0.2 mg Lasex 80 mg IV Morphine 2 mg IV Topical NTG Some improvement noted. I discussed the case with our hospitalist.? About the presentation and exam and diagnostics and treatments here.? And need of further care in the hospital.? Will accept the patient. Ernesto Buck MD
--- NOTE | 2025-05-04 06:12 | ESHP_ITS ---
Documentation for date of: 05/04/25 [facility] History of Present Illness Chief complaint: Shortness of breath History of present illness: 59-year-old male with history of HFrEF (EF 25?30% from prior admission 09/2023), hypertension, and methamphetamine use presents with worsening shortness of breath. Patient states symptoms began about 5 days ago, progressively worsening, worse with exertion and improved somewhat at rest. He has not taken Lasix for approximately one month due to running out of medication. He denies chest pain, syncope, headache, nausea, vomiting, diarrhea, abdominal pain, or fevers/chills. He reports intermittent palpitations but no mayra chest pain. No lower extremity swelling reported. Denies prior stroke history. Last methamphetamine use was 2?3 days ago. Occasional alcohol, smokes cigarettes. No known drug allergies. In the ED, he was hypertensive to 211/149 with HR 124, RR 22, SpO2 low requiring BiPAP. Labs notable for WBC 15.2, Cr 1.9 (baseline ~1.6?1.7), troponin 0.081, BNP 485, utox positive for meth. CXR showed vascular congestion. He received BiPAP, furosemide 80 mg IV, morphine 2 mg IV, NTG topical, clonidine 0.2 mg PO, metoprolol 50 mg PO. ROS: * Constitutional: No fever, chills, weight change * CV: Dyspnea, palpitations; denies chest pain, syncope, edema * Resp: Shortness of breath, no cough or sputum * GI: No abdominal pain, nausea, vomiting, diarrhea * : No dysuria, hematuria, decreased urine output * Neuro: No headache, focal weakness, or confusion * All others negative except as above PMH * HFrEF 25?30% * Hypertension * Methamphetamine use disorder PSH * Bilateral shoulder surgery * Left elbow surgery Meds (per patient) * Furosemide (not taken for 1 month) * Lisinopril * Carvedilol * Aspirin 81 mg Allergies * No known drug allergies Family Hx * No significant cardiac disease Social Hx * Tobacco: Cigarettes, ~? pack/day * Alcohol: Occasional * Drugs: Methamphetamine, last use 2?3 days ago; denies marijuana * Lives alone Exam Vital Signs Temp Pulse Resp BP Pulse Ox O2 Del Method FiO2 98.8 F 85 18 157/122 H 94 L BiPAP 30 05/04/25 03:22 05/04/25 05:45 05/04/25 05:45 05/04/25 05:45 05/04/25 05:45 05/04/25 05:45 05/04/25 04:55 Narrative Exam General: Alert, oriented, in moderate respiratory distress on BiPAP. HEENT: PERRLA, oral mucosa moist. Neck: No JVD, no carotid bruit. Heart: Tachycardic, regular, no murmurs/gallops. Lungs: Decreased air movement oon lung bases. Abdomen: Soft, NT, ND, normoactive bowel sounds. Extremities: No cyanosis, clubbing, or edema. Skin: Warm, dry. Neuro: A&Ox3, no focal deficits. Results: Labs 05/04/25 04:15 05/04/25 04:15 Labs: Short CBC 05/04/25 Range/Units 04:15 WBC 15.2 H (3.8-10.6) Thou/mm3 Hgb 16.2 H (13.5-16.0) g/dL Hct 50.3 (41.0-53.0) % Plt Count 313 (140-440) Thou/mm3 BMP 05/04/25 04:15 Sodium 141 Potassium 3.7 Chloride 105 Carbon Dioxide 24.2 BUN 23 Creatinine 1.9 H Glucose 121 H Calcium 9.6 Cardiac Enzymes 05/04/25 Range/Units 04:15 Troponin I 0.081 H* (0.0-0.045) ng/mL Liver Function 05/04/25 Range/Units 04:15 Total Bilirubin 0.3 (0.3-1.2) mg/dL Direct Bilirubin < 0.1 (0.0-0.3) mg/dL AST 26 (0-34) U/L ALT 23 (10-49) U/L Alkaline Phosphatase 154 H (46-116) U/L Albumin 4.3 (3.4-4.8) gm/dL Urine 05/04/25 Range/Units 04:09 Urine Color Colorless A (Lt Yel-Yel) Urine Clarity Clear (Clear/Hazy) Urine pH 6.5 (5.0-7.0) Ur Specific [place] 1.016 (1.001-1.035) Urine Protein 1+ A (Neg - Trace) Urine Glucose (UA) Negative (Negative) ABG Interpretation ABG results: 05/04/25 04:46 ABG pH 7.45 ABG pCO2 35 ABG pO2 71 L ABG HCO3 24 ABG O2 Saturation 94 ABG Base Excess 1 Quality Measures Quality Measures VTE prophylaxis Medications Home Medications and Allergies Allergies Allergy/AdvReac Type Severity Reaction Status Date / Time No Known Allergies Allergy Verified 05/04/25 03:14 Visit Medications Discontinued Medications Clonidine (Clonidine Hcl 0.1 Mg Tablet) 0.2 mg PO X1 ONE Stop: 05/04/25 04:14 Last Admin: 05/04/25 04:33 Dose: 0.2 mg Furosemide (Furosemide Inj 10 Mg/Ml 4ml Vial) 80 mg IVP X1 ONE Stop: 05/04/25 03:59 Last Admin: 05/04/25 04:31 Dose: 80 mg Metoprolol Tartrate (Metoprolol Tartrate 25 Mg Tablet) 50 mg PO X1 ONE Stop: 05/04/25 04:14 Last Admin: 05/04/25 04:33 Dose: 50 mg Morphine Sulfate (Morphine Sulf Inj 10 Mg/Ml Vial) 2 mg IVP X1 ONE Stop: 05/04/25 03:59 Last Admin: 05/04/25 04:32 Dose: 2 mg Nitroglycerin (Nitroglycerin Oint 2% 1 Inch Packet) 2 inch TOP X1 ONE Stop: 05/04/25 03:59 Last Admin: 05/04/25 04:32 Dose: 2 inch Assessment & Plan Plan 59-year-old male with HFrEF (EF 25?30%), HTN, meth use, and medication noncompliance presenting with acute decompensated heart failure, hypertensive emergency, and type 2 NSTEMI. # Acute decompensated HFrEF # Acute on chronic systolic (congestive) heart failure Patient with EF 25?30% presents with worsening SOB, hypertensive crisis, diffuse rales, pulmonary vascular congestion on CXR, BNP 485, and non-compliance with Lasix for 1 month. Triggered by meth use. Plan: * Admit to telemetry * BiPAP support, titrate O2 for SpO2 >92% * Furosemide 40 mg IV BID * Strict I/Os, daily weights * 1.5 L fluid restriction, 2 g sodium diet * Daily BMP, Mg, Phos; replete electrolytes as needed * TTE ordered # Hypertensive emergency Presented with BP 211/149, pulmonary edema. Treated in ED with clonidine, NTG, metoprolol. Plan: * Continue carvedilol (hold if SBP <100 or HR <60) * NTG PRN * Hold lisinopril until renal function clarified * Monitor BP closely on telemetry # NSTEMI type 2 Mild troponin elevation (0.081) in the setting of hypertensive emergency and acute decompensated HF. No chest pain. Likely demand ischemia. Plan: * Trend troponins ?2 more * Monitor on telemetry * Repeat EKG PRN chest pain or arrhythmia * Optimize BP and volume status (as above) # Acute kidney injury on CKD # Cardiorenal Syndrome Creatinine 1.9 (baseline ~1.6?1.7), could be chronic vs mild WILMA with congestion. Plan: * Daily BMP * Avoid nephrotoxins * Treat CHF as above * Hold lisinopril until renal function stabilizes # Methamphetamine use disorder Recent use (2?3 days ago) likely trigger for hypertensive crisis and CHF exacerbation. 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 Flora Mcneill MD PGY-1 Internal Medicine Attending Provider Attestation/Addendum I have examined the patient, reviewed labs and imaging findings, discussed the case with the resident(s), and reviewed entered orders. I agree with the plan of care as outlined in this note, with these additional summaries/recommendations: After examination of the patient and review of the clinical data, I feel that this patient needs admission to the hospital for further treatment and evaluation. Patient is a 59-year-old male with a medical history of HFrEF (EF 25 to 30%), CKD, primary hypertension, dyslipidemia, and substance abuse presents to [facility] emergency department on 05/04/2025 with chief complaint of shortness of breath. Patient seen at bedside. Currently on BiPAP. Patient diagnosed with acute CHF exacerbation and pulmonary edema. Presented with lower extremity edema, shortness of breath, and orthopnea. BNP 45, chest x-ray shows vascular congestion and perihilar edema. Weight on admission 65.7 kg. Ordered transthoracic echocardiogram. Risk factor stratification with lipid panel, A1c, and TSH. Strict I's and O's and daily weights. Continue pulse ox, titrate O2 to around 90% and continue BiPAP for pulmonary edema. For preload reduction patient will be fluid restricted, started on IV diuresis, with goal net negative at least 1.5 L for hospital stay. Resume home JANIE for afterload reduction. Continue home Coreg for neurohormonal blockade. Troponin elevated. Most likely secondary to demand ischemia in the setting of CHF exacerbation and continued methamphetamine use. EKG reviewed and no acute ST changes indicative of acute ischemia. Trend troponin every 6 hours or until downtrend. Leukocytosis present and most likely reactive. Patient also noted to have hypertensive urgency on admission with blood pressure 191/143. Patient was given antihypertensives in the emergency room with improvement. Patient also has WILMA on CKD. On admission creatinine 1.9 and patient's baseline appears to be 1.6. Possibly a component of cardiorenal syndrome and we will repeat renal panel after diuresis. Leukocytosis present although no evidence of infection at this time and procalcitonin within normal limits. Leukocytosis likely reactive. 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 Please see residents note for additional details and management. Dr. Flora MD
--- NOTE | 2025-05-04 07:42 | ECHO_ITS ---
Transthoracic Echo Report Ht (in): 61 Wt (lb): 145 Exam Location: Echo Lab Status: Inpatient Robotic Machine Operator: Maddy Quesada Indications: Procedure Performed: BP: 120 / 88 HR: 85 MEASUREMENTS (Male / Female) Normal Values 2D ECHO LV Diastolic Diameter PLAX 4.5 cm 4.2 - 5.9 / 3.9 - 5.3 cm LV Systolic Diameter PLAX 3.8 cm IVS Diastolic Thickness 1.2 cm 0.6 - 1.0 / 0.6 - 0.9 cm LVPW Diastolic Thickness 1.1 cm 0.6 - 1.0 / 0.6 - 0.9 cm LV Relative Wall Thickness 0.5 LVOT Diameter 2.1 cm LV Ejection Fraction MOD BP 39.3 % >= 55 % LV Cardiac Index MOD BP 2727.2 cm?/min?m? LV Ejection Fraction MOD 4C 35.6 % LV Cardiac Index MOD 4C 2897.1 cm?/min?m? LV Ejection Fraction 4C AL 34.3 % LV Cardiac Index 4C AL 2882.3 cm?/min?m? LV Ejection Fraction MOD 2C 42.9 % LV Cardiac Index MOD 2C 2377.6 cm?/min?m? LV Ejection Fraction 2C AL 43.0 % LV Cardiac Index 2C AL 2431.0 cm?/min?m? LA Volume Index 23.8 cm?/m? 16 - 28 cm?/m? Ascending Aorta Diameter 3.1 cm DOPPLER AV Peak Velocity 108.0 cm/s AV Peak Gradient 4.7 mmHg AV Mean Gradient 3.0 mmHg AV Velocity Time Integral 18.3 cm LVOT Peak Velocity 70.1 cm/s LVOT Peak Gradient 2.0 mmHg LVOT Velocity Time Integral 11.5 cm LVOT Cardiac Index 1989.6 cm?/min?m? AV Area Cont Eq vti 2.2 cm? AV Area Cont Eq pk 2.2 cm? MV Area PHT 5.9 cm? Mitral E Point Velocity 97.0 cm/s TR Peak Velocity 164.0 cm/s TR Peak Gradient 10.8 mmHg PV Peak Velocity 58.2 cm/s PV Peak Gradient 1.4 mmHg FINDINGS Left Ventricle Normal left ventricular size.Mild LVH. Severe systolic dysfunction. Severe global hypokinesis.The ejection fraction is visually estimated at 30-35%. Right Ventricle The right ventricle is normal in size and mild systolic function. Left Atrium The left atrium is normal by two-dimensional, color flow and Doppler imaging with no structural abnormalities, no thrombus formation present. Right Atrium The right atrium is normal by two-dimensional imaging, color flow and Doppler imaging with no structural abnormalities, no thrombus formation present. Atrial Septum The interatrial septum appears normal with no evidence of a shunt. Aorta The aorta is normal by two-dimensional, color flow and Doppler interrogation. Mitral Valve The mitral valve is normal by two-dimensional, color flow and Doppler interrogation.trace to mild mitral regurgitation. Aortic Valve The aortic valve is trileaflet. Mild sclerosis without stenosis.trace to mild aortic valve regurgitation. Tricuspid Valve The tricuspid valve is normal by two-dimensional, color flow and Doppler interrogation. There is trace tricuspid valve regurgitation. Pulmonic Valve Mild pulmonic valve regurgitation. Vessels The pulmonary artery appears normal. The inferior vena cava pulmonary and hepatic veins appear normal. Pericardium The pericardium is normal by two-dimensional imaging. There is no significant pericardial effusion. CONCLUSIONS Indication:CHF Mild LVH, Severe systolic dysfunction. Severe global hypokineses. Estimated EF 30-35%. Grade II duastolic dysfunction. Normal RV size. Mild RV systolic dysfunction Trace MR and PI, Mild TR and AI,, Mild AV sclerosis without stenosis No pericardial effusion. IVC normal size. Percy Paul (Electronically Signed) Final Date: 06 May 2025 16:23
[2025-05-04 08:10] LABS: Troponin I 0.073 ng/mL (0.0-0.045)
[2025-05-04] MEDS: Magnesium Sulfate 2 GM Ivpb 2 GM/50 ML BAG IV (08:14)
[2025-05-04 08:40] LABS: Glucose Estimated Average 134 mg/dL (80-131); Hemoglobin A1C 6.3 % Hgb (4.8-6.0)
[2025-05-04] MEDS: HEPARIN SOD INJ 5000 UNIT/ML VIAL SC (09:13)
[2025-05-04] MEDS: ASPIRIN EC 81 MG TABEC PO (09:13)
--- NOTE | 2025-05-04 10:06 | ESCONSULT_ITS ---
HPI Data of Consult Patient: new to practice Consult date: 05/04/25 Requesting Physician: Иван Hines MD Admitting Provider: Иван Hines MD Attending Provider: Иван Hines MD Primary Care Provider: Dennis Caballero MD Consult Narrative Reason for consult: CHF History of present illness: The patient is a 59-year-old male with a past medical history of HFrEF, diagnosed in 2023, CKD stage III, hypertension, substance abuse disorder including methamphetamine, noncompliance with medications, chronic smoker who presented to the ED complaining of worsening shortness of breath for the past 4 days. Patient reported that he went for a swim in the river 4 days ago and after that has been feeling short of breath. Patient endorses he is established with legal research analyst in [place] [address] [place], and had echocardiogram and treadmill stress test done a few weeks ago, but has not followed up with appointment for results. Patient reported he has orthopnea PND and dyspnea on exertion. But denied chest pain or pressure. Denied fever or cough. Denies sputum production. Patient does have extensive history of smoking, has never been formally diagnosed with COPD, but has been using inhalers occasionally which do provide some respiratory relief. In the ED, initial vitals on presentation were blood pressure 197/127, pulse 124/min, respiratory 36/min, saturating 95% on room air, later patient was noted to be hypoxic in the ED and was started on BiPAP, currently saturating 93% on BiPAP 30% FiO2 10/15. EKG was done in the ED which shows T wave inversion in the lateral leads, consistent with old EKG changes. No new ischemic changes noted on EKG . Initial labs showed leukocytosis WBC 15.2, polycythemia hemoglobin 16.2 platelets 313, ESR 31, negative D-dimers, ABG was done this morning which shows hypoxia ABG PO271 on 30% FiO2, ABG SpO2 94%. CHEM panel shows normal sodium and potassium but elevated creatinine 1.9, EGFR 40 of note patient does have some elevation of creatinine in the past, baseline seems to be around 1.6, A1c 6.3%, noted slightly elevated troponin 0.081, already peaked, elevated BNP 45, negative procalcitonin, urinalysis unremarkable, U tox positive for methamphetamines. Chest x-ray shows mild enlargement of cardiac contour no pneumonia or mayra pulmonary edema seen. In the ED patient was given furosemide 80 mg IV x 1, IV morphine 2 mg x 1, nitroglycerin patch was placed, clonidine 0.2 mg x 1 metoprolol tartrate 50 mg x 1, resumed home medications including carvedilol 25 mg twice daily aspirin 81 mg, electrolytes including potassium and magnesium were replaced. Past medical history: History of heart failure with reduced action fraction, EF 20 to 25% on previous echocardiogram in 2023, CKD stage III, hypertension, substance abuse disorder including mental phentermine, chronic smoker more than [id number] smoking history. Family history: History of cardiac disorders in mom, with a heart attack in her 50s Social history: Patient lives alone, endorsed occasional alcohol use, methamphetamine use, last use was 2 days ago, and smoking. More than 20 pack years. Home medications: Carvedilol, lisinopril, aspirin and Lasix. History of noncompliance with medications. cc:: cc: Иван Hines MD Review of Systems Review of Systems Systems Reviewed: All systems reviewed, normal except as documented Past Medical History Past Medical History NEUROLOGIC: Negative Neurological Disorders CARDIAC: Positive Congestive Heart Failure, Cardiomyopathy, Edema and Hypertension; Negative Cardiac Disorders RESPIRATORY: Negative Chronic Obstructive Pulmonary Disease (COPD) GASTROINTESTINAL: Negative Gastrointestinal Disorders GENITOURINARY: Negative Renal Disease MUSCULOSKELETAL: Positive Arthritis ENDOCRINE: Negative Diabetes Mellitus Type 1 or Diabetes Mellitus Type 2 PSYCHO/SOCIAL: Positive Recreational Drug Use Social History SMOKING STATUS: Current some day smoker Exam Vital Signs Temp Pulse Resp BP Pulse Ox O2 Del Method FiO2 98.6 F 66 31 H 123/89 H 94 L BiPAP 30 05/04/25 08:17 05/04/25 09:13 05/04/25 08:45 05/04/25 09:13 05/04/25 08:45 05/04/25 08:17 05/04/25 08:17 Narrative Exam General: AOx3, cooperative Skin: Intact, no cyanosis noted. Noted extensive tattoos over anterior chest back and arms. 2+ pitting edema bilateral lower extremities extending up to mid hernandes. HEENT: Atraumatic/normocephalic, ADALBERTO, neck supple Heart: RRR, S1 and S2 without clicks or murmurs Lungs: Noted basal crackles and bilateral wheezing in lower and mid zones on auscultation, currently on BiPAP 30% FiO2 saturating 93%. Abdomen: Soft, nontender. Bowel sounds present . Vascular: Peripheral pulses palpable Neuro: No focal neurological deficits noted. Results Labs 05/06/25 05:42 05/06/25 05:42 Labs: Short CBC 05/04/25 Range/Units 04:15 WBC 15.2 H (3.8-10.6) Thou/mm3 Hgb 16.2 H (13.5-16.0) g/dL Hct 50.3 (41.0-53.0) % Plt Count 313 (140-440) Thou/mm3 BMP 05/04/25 04:15 Sodium 141 Potassium 3.7 Chloride 105 Carbon Dioxide 24.2 BUN 23 Creatinine 1.9 H Glucose 121 H Calcium 9.6 Cardiac Enzymes 05/04/25 05/04/25 Range/Units 04:15 07:15 Troponin I 0.081 H* 0.073 H* (0.0-0.045) ng/mL Liver Function 05/04/25 Range/Units 04:15 Total Bilirubin 0.3 (0.3-1.2) mg/dL Direct Bilirubin < 0.1 (0.0-0.3) mg/dL AST 26 (0-34) U/L ALT 23 (10-49) U/L Alkaline Phosphatase 154 H (46-116) U/L Albumin 4.3 (3.4-4.8) gm/dL Urine 05/04/25 Range/Units 04:09 Urine Color Colorless A (Lt Yel-Yel) Urine Clarity Clear (Clear/Hazy) Urine pH 6.5 (5.0-7.0) Ur Specific [place] 1.016 (1.001-1.035) Urine Protein 1+ A (Neg - Trace) Urine Glucose (UA) Negative (Negative) ABG Interpretation ABG results: 05/04/25 04:46 ABG pH 7.45 ABG pCO2 35 ABG pO2 71 L ABG HCO3 24 ABG O2 Saturation 94 ABG Base Excess 1 Quality Measures Quality Measures VTE prophylaxis Medications Home Medications and Allergies Home Medications ?Medication ?Instructions ?Recorded ?Confirmed ?Type aspirin 81 mg chewable tablet 81 mg PO .Am 05/04/25 History Allergies Allergy/AdvReac Type Severity Reaction Status Date / Time No Known Allergies Allergy Verified 05/04/25 03:14 Visit Medications Acetaminophen (Acetaminophen 325 Mg Tablet) 650 mg PO Q6H PRN PRN Reason: Fever >100.4 Stop: 06/03/25 06:07 Acetaminophen (Acetaminophen 325 Mg Tablet) 650 mg PO Q6H PRN PRN Reason: PAIN SCALE 1-3 (mild Stop: 06/03/25 06:07 Aspirin (Aspirin Ec 81 Mg Tabec) 81 mg PO QDAY [facility] Stop: 06/03/25 08:59 Last Admin: 05/04/25 09:13 Dose: 81 mg Carvedilol (Carvedilol 12.5 Mg Tablet) 25 mg PO BIDWM [facility] Stop: 06/03/25 07:59 Last Admin: 05/04/25 09:13 Dose: 25 mg Furosemide (Furosemide Inj 10 Mg/Ml 4ml Vial) 40 mg IVP BIDD [facility] Stop: 06/03/25 17:59 Heparin Sodium (Porcine) (Heparin Sod Inj 5000 Unit/Ml Vial) 5,000 unit SC Q12HR [facility] Stop: 05/18/25 08:59 Last Admin: 05/04/25 09:13 Dose: 5,000 unit Nitroglycerin (Nitroglycerin 0.4 Mg Subl Btl #25) 0.4 mg SL Q5MIN PRN PRN Reason: CHEST PAIN Ondansetron HCl (Ondansetron Inj 2 Mg/Ml Inj 2 Ml) 4 mg IVP Q6H PRN; Protocol PRN Reason: NAUSEA OR VOMITING Stop: 06/03/25 06:07 Pantoprazole Sodium (Pantoprazole Inj 40 Mg Vial) 40 mg IVP QDAY [facility] Stop: 06/03/25 08:59 Last Admin: 05/04/25 09:14 Dose: 40 mg Discontinued Medications Clonidine (Clonidine Hcl 0.1 Mg Tablet) 0.2 mg PO X1 ONE Stop: 05/04/25 04:14 Last Admin: 05/04/25 04:33 Dose: 0.2 mg Furosemide (Furosemide Inj 10 Mg/Ml 4ml Vial) 80 mg IVP X1 ONE Stop: 05/04/25 03:59 Last Admin: 05/04/25 04:31 Dose: 80 mg Magnesium Sulfate (Magnesium Sulfate Ivpb) 2 gm in 50 mls @ 25 mls/hr IV X1 ONE Stop: 05/04/25 09:37 Last Admin: 05/04/25 08:14 Dose: 25 mls/hr Metoprolol Tartrate (Metoprolol Tartrate 25 Mg Tablet) 50 mg PO X1 ONE Stop: 05/04/25 04:14 Last Admin: 05/04/25 04:33 Dose: 50 mg Morphine Sulfate (Morphine Sulf Inj 10 Mg/Ml Vial) 2 mg IVP X1 ONE Stop: 05/04/25 03:59 Last Admin: 05/04/25 04:32 Dose: 2 mg Nitroglycerin (Nitroglycerin Oint 2% 1 Inch Packet) 2 inch TOP X1 ONE Stop: 05/04/25 03:59 Last Admin: 05/04/25 04:32 Dose: 2 inch Potassium Chloride (Potassium Chloride 20 Meq Tabcr) 40 meq PO X1 ONE Stop: 05/04/25 07:39 Last Admin: 05/04/25 08:06 Dose: 40 meq Assessment & Plan Plan The patient is a 59-year-old male with a past medical history of HFrEF, diagnosed in 2023, CKD stage III, diabetes, hypertension, substance abuse disorder including methamphetamine, noncompliance with medications, chronic smoker who presented to the ED complaining of worsening shortness of breath for the past 4 days. Patient reported that he went for a swim in the river 4 days ago and after that has been feeling short of breath. Patient endorses he is established with legal research analyst in [place] [address] [place], and had echocardiogram and treadmill stress test done a few weeks ago, but has not followed up with appointment for results. Patient reported he has orthopnea PND and dyspnea on exertion. But denied chest pain or pressure. Denied fever or cough. Denies sputum production. Patient does have extensive history of smoking, has never been formally diagnosed with COPD, but has been using inhalers occasionally which do provide some respiratory relief. In the ED, initial vitals on presentation were blood pressure 197/127, pulse 124/min, respiratory 36/min, saturating 95% on room air, later patient was noted to be hypoxic in the ED and was started on BiPAP, currently saturating 93% on BiPAP 30% FiO2 10/15. EKG was done in the ED which shows T wave inversion in the lateral leads, consistent with old EKG changes. No new ischemic changes noted on EKG per my interpretation. Initial labs showed leukocytosis WBC 15.2, polycythemia hemoglobin 16.2 platelets 313, ESR 31, negative D-dimers, ABG was done this morning which shows hypoxia ABG PO271 on 30% FiO2, ABG SpO2 94%. CHEM panel shows normal sodium and potassium but elevated creatinine 1.9, EGFR 40 of note patient does have some elevation of creatinine in the past, baseline seems to be around 1.6, A1c 6.3%, noted slightly elevated troponin 0.081, already peaked, elevated BNP 45, negative procalcitonin, urinalysis unremarkable, U tox positive for methamphetamines. Chest x-ray shows mild enlargement of cardiac contour no pneumonia or mayra pulmonary edema seen. In the ED patient was given furosemide 80 mg IV x 1, IV morphine 2 mg x 1, nitroglycerin patch was placed, clonidine 0.2 mg x 1 metoprolol tartrate 50 mg x 1, resumed home medications including carvedilol 25 mg twice daily aspirin 81 mg, electrolytes including potassium and magnesium were replaced. Past medical history: History of heart failure with reduced action fraction, EF 20 to 25% on previous echocardiogram in 2023, CKD stage III, diabetes mellitus history of noncompliance with medications, hypertension, substance abuse disorder including mental phentermine, chronic smoker more than [id number] smoking history. Family history: History of cardiac disorders in mom, with a heart attack in her 50s Social history: Patient lives alone, endorsed occasional alcohol use, methamphetamine use, last use was 2 days ago, and smoking. More than 20 pack years. Home medications: Carvedilol, lisinopril, aspirin and Lasix. History of noncompliance with medications. Problems: 1. NSTEMI likely type II 2. Acute on chronic CHF, likely dilated cardiomyopathy from history of methamphetamine abuse 3. Acute hypoxic respiratory failure secondary to CHF exacerbation 4. Hypertensive urgency 5. Methamphetamine abuse 6. Chronic smoker , COPD 7. Prediabetes 8. History of hypertension 9. History of CKD 10. Polycythemia, likely 2/2 chronic smoking Patient complaining of sudden onset chest pain 4 days ago, had orthopnea PND and dyspnea on exertion. Currently NYHA class IVsymptoms, patient might require workup of coronary artery disease and ischemia, previous stress testing done at legal research analyst office outpatient, recommend getting medical records.Patient stated his symptoms started after he went [place] a swim in the river. But denied any fever or cough, does not think he has pneumonia. Chest x-ray negative for pneumonia, did notice leukocytosis possibly reactive. Symptoms likely related to acute on chronic CHF, prior echocardiogram from 2023 shows severe systolic dysfunction, severe global hypokinesis, estimated EF 25 to 30%, stage II diastolic dysfunction. Mild AV sclerosis without stenosis. Patient received 80 mg IV Lasix x 1 in the ED. He reported improvement in symptoms, currently on BiPAP. Currently started on beta-blockers and JANIE inhibitors as part of GDMT, will continue guideline directed medical therapy as blood pressure tolerates. The patient denied any diagnosis of COPD or asthma in the past, but has a history of chronic smoking over 20 pack years, reported he has been prescribed inhalers in the past which did help with his symptoms, currently physical exam pertinent for basal crackles as well as wheezing in the mid to lower lung zones. Consider COPD, if patient continues to be short of breath might benefit from nebulizations in addition to diuresis. Denied having any chest pain or pressure on this occurrence, also denied history of prior myocardial infarction in the past. Did endorse methamphetamine abuse, echocardiogram also shows global hypokinesis and severe systolic dysfunction, consistent with dilated cardiomyopathy likely in the setting of methamphetamine abuse. Patient does have risk factors for coronary artery disease, will benefit from outpatient workup to rule out ischemic heart disease. EKG was done in the ED which shows T wave inversion in the lateral leads, consistent with old EKG changes. Slight troponin elevation already peaked at 0.08, likely type II NSTEMI in the setting of hypoxia. Counseled regarding discontinuing methamphetamine, discontinuing smoking. Patient has no reported history of diabetes, A1c 6.3%, prediabetic range, no previous A1c on file, patient would benefit from addition of SGLT2 as well as diabetic education and risk factor modification. Noted elevated creatinine multiple labs during previous hospital visit, patient is not following with a curing press operator, likely has CKD stage III in the setting of diabetes mellitus and illicit drug abuse. Patient will benefit from outpatient nephrology workup. Recommendations: ? Echocardiogram ordered ? Continue guideline directed medical therapy as pt. tolerates, continue home meds- Coreg 25 mg twice daily, lisinopril 10 mg daily, and furosemide 40 mg twice daily. ? Strict intake and output monitoring ? Continue monitoring electrolytes, avoid hypomagnesemia and hypokalemia dependence arrhythmias. ? Currently symptoms NYHA class IV, patient might require workup of coronary artery disease and ischemia, previousl stress testing done at legal research [employer] office outpatient, recommend getting medical records. ? Also noted polycythemia will order iron studies and Ferretin to r/o hemochromatois. ? Fluid restriction to 1200 cc daily, target upto 1.5 L net negative urine output per day. ? Continue NIPPV as indicated. ? Patient will benefit from addition of SGLT2i and MRA if stable renal function and no hyperkalemia. Rest of the management deferred to primary team. Thank you for cardiology consultation. We appreciate the opportunity to participate in this patient's care. Will continue to follow-up on this patient This case was discussed with legal research analyst, Dr. Paul. Robert Reed MD PG3 Attending Provider Attestation/Addendum I have personally seen and examined the patient separately on the above date of service and discussed the plan of care with the resident. I reviewed the resident Dr. Robert Reed consultation progress note and agree with the resident findings and plan in the note above and have also edited the documentation to reflect my findings and plan. Percy Paul M.D. Interventional Cardiology
[2025-05-04 10:09] LABS: Cardiac Risk Estimate 4.0 RATIO (4.0-6.7); Cholesterol 181 mg/dL (132-200); HDL Cholesterol 45 mg/dL (40-60); LDL Cholesterol,Calculated 111 mg/dL (0-130); Triglycerides 126 mg/dL (30-150)
[2025-05-04 11:28] LABS: Ferritin 175 ng/mL (10.5-307.3); Iron 37 mcg/dL (65-175); Percent Iron Saturation 12 % (20-55); Total Iron Binding Capacity 303 mcg/dL (250-425); Unsaturated Iron Binding 266 (225-295)
--- NOTE | 2025-05-04 11:45 | PD.RESDS ---
Planned Discharge Date 05/04/25 DS: Providers Provider Date of admission: 05/04/25 06:10 Primary care physician: Dennis Caballero MD Admitting Provider: Иван Hines MD Attending Provider on Admission: Иван Hines MD Consults: 05/04/25 04:12 Referral Respiratory Therapy Stat Comment: BiPAP 05/04/25 11:06 Consult to Cardiology Routine Comment: CHF exacerbation Consulting Provider: Percy Paul Attending Provider on DC: Jarrett Rodriguez DO Discharging Provider: Jarrett Rodriguez DO Hospital Course Hospital Course Hospital course: The patient is a 59-year-old male with a past medical history of HFrEF, diagnosed in 2023, CKD stage III, hypertension, substance abuse disorder including methamphetamine, noncompliance with medications, chronic smoker who presented to the ED complaining of worsening shortness of breath for the past 4 days. Patient reported that he went for a swim in the river 4 days ago and after that has been feeling short of breath. Patient endorses he is established with [facility] in [place] [address]tz, and had echocardiogram and treadmill stress test done a few weeks ago, but has not followed up with appointment for results. Patient reported he has orthopnea PND and dyspnea on exertion. But denied chest pain or pressure. Denied fever or cough. Denies sputum production. Patient does have extensive history of smoking, has never been formally diagnosed with COPD, but has been using inhalers occasionally which do provide some respiratory relief. In the ED, initial vitals on presentation were blood pressure 197/127, pulse 124/min, respiratory 36/min, saturating 95% on room air, later patient was noted to be hypoxic in the ED and was started on BiPAP, currently saturating 93% on BiPAP 30% FiO2 10/15. EKG was done in the ED which shows T wave inversion in the lateral leads, consistent with old EKG changes. No new ischemic changes noted on EKG . Initial labs showed leukocytosis WBC 15.2, polycythemia hemoglobin 16.2 platelets 313, ESR 31, negative D-dimers, ABG was done this morning which shows hypoxia ABG PO271 on 30% FiO2, ABG SpO2 94%. CHEM panel shows normal sodium and potassium but elevated creatinine 1.9, EGFR 40 of note patient does have some elevation of creatinine in the past, baseline seems to be around 1.6, A1c 6.3%, noted slightly elevated troponin 0.081, already peaked, elevated BNP 45, negative procalcitonin, urinalysis unremarkable, U tox positive for methamphetamines. Chest x-ray shows mild enlargement of cardiac contour no pneumonia or mayra pulmonary edema seen. In the ED patient was given furosemide 80 mg IV x 1, IV morphine 2 mg x 1, nitroglycerin patch was placed, clonidine 0.2 mg x 1 metoprolol tartrate 50 mg x 1, resumed home medications including carvedilol 25 mg twice daily aspirin 81 mg, electrolytes including potassium and magnesium were replaced. Past medical history: History of heart failure with reduced action fraction, EF 20 to 25% on previous echocardiogram in 2023, CKD stage III, hypertension, substance abuse disorder including mental phentermine, chronic smoker more than [id number] smoking history. Family history: History of cardiac disorders in mom, with a heart attack in her 50s Social history: Patient lives alone, endorsed occasional alcohol use, methamphetamine use, last use was 2 days ago, and smoking. More than 20 pack years. Home medications: Carvedilol, lisinopril, aspirin and Lasix. History of noncompliance with medications. Time Spent with Patient Time attestation: Total time spent providing and/or coordinating discharge services: Exam Vital Signs Temp Pulse Resp BP Pulse Ox O2 Del Method O2 Flow Rate 96.9 F 70 26 H 106/78 99 Nasal Cannula 5 05/04/25 10:14 05/04/25 10:14 05/04/25 10:14 05/04/25 10:14 05/04/25 10:14 05/04/25 10:14 05/04/25 10:14 FiO2 30 05/04/25 08:17 Discharge Plan Prescriptions/Referrals Prescriptions/Med Rec: No Action lisinopril 20 mg tablet 20 mg PO QDAY Qty: 30 3RF carvedilol [Coreg] 25 mg tablet 25 mg PO Q12H Qty: 60 3RF Rx Instructions: must administer with a meal/food furosemide [Lasix] 20 mg tablet 20 mg PO QAM Qty: 30 0RF cyclobenzaprine 10 mg tablet 10 mg PO BID PRN (Reason: muscle spasm) Qty: 10 0RF aspirin 81 mg tablet,chewable 81 mg PO .Am Patient Comments: TAKE 1 TABLET BY MOUTH EVERY DAY Referrals: Dennis Caballero MD [Primary Care Provider] - Patient/Caregiver Discharge Instructions Print Language: Sinhala
[2025-05-04 13:57] LABS: Troponin I 0.054 ng/mL (0.0-0.045)
--- NOTE | 2025-05-04 17:18 | ESPR_ITS ---
<Statement entered by Navid Zuniga MD - 05/04/25 17:36> I have reviewed the note and agree with the resident's assessment & plan with exceptions as below. I have personally reviewed labs, imaging, home meds/prior records, examined the patient, formulated and discussed management plan with the IM team. Patient examined bedside today. Patient is currently on BiPAP, will transition patient to nasal cannula. Patient does not seem to be in overt distress at this time and I believe patient will be able to tolerate nasal cannula. Patient is saturating well at this time. Patient seems to be noncompliant with his medicines including his beta-tod and Lasix. Will hold on giving beta- tod at this time due to acute exacerbation and will resume within the next couple days. Patient's blood pressure has been a bit soft, will hold on additional diuresis, however patient's output has been good. Cardiology on consult, appreciate recommendations. Keep magnesium and potassium above 2 respectively to avoid any arrhythmias. Follow-up with cardiac stratification. Referral for social service liaison as patient does have drug history. Additional echocardiogram ordered, however previous echocardiogram has showed severe systolic dysfunction HFrEF, ejection fraction roughly 20%, previous echocardiogram did not show dilated cardiomyopathy although patient does have history of meth abuse.. Troponins have leveled off, NSTEMI type II likely related to demand ischemia. Patient found to have polycythemia, however unsure if patient takes testosterone, lives in altitude or related to smoking history. Patient's blood pressure was in the 200s initially, currently at 91, there is concern as this is too high of a correct of systolic blood pressure and puts patient at risk for stroke, therefore we will hold on augmenting blood pressure at this time. Repeat hematology, chemistry in the a.m. #Acute on chronic hypoxic respiratory failure #Acute on chronic decompensated HFrEF #Hypertensive emergency #NSTEMI type II #CKD #Prediabetes #History of hypertension #Polycythemia #Drug abuse, meth #Tobacco use Navid Zuniga, PGY-2 Internal Medicine Documentation for date of: 05/04/25 Subjective Subjective Interval history: Patient examined bedside while in the ED, breathing on BiPAP (IP:10 EP:5 FiO2:30). He reports SOB when off bipap. Denies chest pain, headaches, hematuria, hemoptysis, vision changes, hearing changes. Exam Vital Signs Temp Pulse Resp BP Pulse Ox O2 Del Method O2 Flow Rate 98.3 F 65 16 91/67 98 Nasal Cannula 3 05/04/25 12:00 05/04/25 12:00 05/04/25 12:00 05/04/25 12:00 05/04/25 12:00 05/04/25 12:00 05/04/25 12:00 FiO2 30 05/04/25 08:17 Narrative Exam General: AOx3, cooperative Skin: Intact, no cyanosis noted. Noted extensive tattoos over anterior chest back and arms. 2+ pitting edema bilateral lower extremities extending up to mid hernandes. HEENT: Atraumatic/normocephalic, ADALBERTO, neck supple Heart: RRR, S1 and S2 without clicks or murmurs. No JVD noted Lungs: Noted basal crackles and bilateral wheezing in lower and mid zones on auscultation, currently on BiPAP 30% FiO2 saturating 93%. Abdomen: Soft, nontender. Bowel sounds present . Vascular: Peripheral pulses palpable Neuro: No focal neurological deficits noted. Objective Labs 05/05/25 04:57 05/05/25 04:57 Labs: Laboratory Results - last 24 hr 05/04/25 05/04/25 05/04/25 04:09 04:10 04:15 WBC 15.2 H RBC 5.66 Hgb 16.2 H Hct 50.3 MCV 89 MCH 28.6 MCHC 32.2 RDW Std Deviation 45.7 H Plt Count 313 Neut % (Auto) 80 Lymph % (Auto) 9 L [place] % (Auto) 8 Eos % (Auto) 2 Baso % (Auto) 1 Neut # (Auto) 12.1 H Lymph # (Auto) 1.4 [place] # (Auto) 1.2 H Eos # (Auto) 0.4 Baso # (Auto) 0.1 Immature Gran # (Auto) 0.07 H Absolute Nucleated RBC 0.00 Immature Gran % 1 H Nucleated RBC % 0 ESR 31 H D-Dimer < 250 Puncture Site ABG pH ABG pCO2 ABG pO2 ABG HCO3 ABG O2 Saturation ABG Base Excess FiO2 Sodium 141 Potassium 3.7 Chloride 105 Carbon Dioxide 24.2 Anion Gap 12 BUN 23 Creatinine 1.9 H Estim Creat Clear Calc 33.3 L eGFR 40 L BUN/Creatinine Ratio [address] Glu mg/dL Hemoglobin A1c Calculated Osmolality 285 Lactic Acid 1.6 Calcium 9.6 Corrected Calcium 9.6 Magnesium 1.7 Iron 37 L TIBC 303 Iron Saturation 12 L Unsat Iron Binding 266 Ferritin 175 Total Bilirubin 0.3 Direct Bilirubin < 0.1 AST 26 ALT 23 Alkaline Phosphatase 154 H Troponin I 0.081 H* C-Reactive Prot, Quant 2.1 H B-Natriuretic Peptide 485 H* Total Protein 7.2 Albumin 4.3 Globulin 2.9 Albumin/Globulin Ratio 1.5 Triglycerides Cholesterol LDL Cholesterol, Calc HDL Cholesterol Cholesterol/HDL Ratio Lipase 45 Procalcitonin 0.15 TSH 2.63 Ur Collection Type Clean Catch Urine Color Colorless A Urine Clarity Clear Urine pH 6.5 Ur Specific [place] 1.016 Urine Protein 1+ A Urine Glucose (UA) Negative Urine Ketones Negative Urine Blood Trace Urine Nitrite Negative Urine Bilirubin Negative Urine Urobilinogen (Auto) Negative Ur Leukocyte Esterase Negative Urine RBC 3 Urine WBC < 1 Ur Squamous Epith Cells 0 Urine Bacteria None Ur Culture Indicated? Not Indicated Urine Opiates Screen Negative Urine Fentanyl Screen Negative Ur Barbiturates Screen Negative U Amphetamin/Meth Scrn Positive A U Benzodiazepines Scrn Negative U Cocaine Metab Screen Negative U Marijuana (THC) Screen Negative Ethyl Alcohol < 3.0 05/04/25 05/04/25 05/04/25 04:46 07:15 12:59 WBC RBC Hgb Hct MCV MCH MCHC RDW Std Deviation Plt Count Neut % (Auto) Lymph % (Auto) [place] % (Auto) Eos % (Auto) Baso % (Auto) Neut # (Auto) Lymph # (Auto) [place] # (Auto) Eos # (Auto) Baso # (Auto) Immature Gran # (Auto) Absolute Nucleated RBC Immature Gran % Nucleated RBC % ESR D-Dimer Puncture Site Right Radial ABG pH 7.45 ABG pCO2 35 ABG pO2 71 L ABG HCO3 24 ABG O2 Saturation 94 ABG Base Excess 1 FiO2 30 Sodium Potassium Chloride Carbon Dioxide Anion Gap BUN Creatinine Estim Creat Clear Calc eGFR BUN/Creatinine Ratio Glucose Estimated Ave Glu mg/dL 134 H Hemoglobin A1c 6.3 H Calculated Osmolality Lactic Acid Calcium Corrected Calcium Magnesium Iron TIBC Iron Saturation Unsat Iron Binding Ferritin Total Bilirubin Direct Bilirubin AST ALT Alkaline Phosphatase Troponin I 0.073 H* 0.054 H* C-Reactive Prot, Quant B-Natriuretic Peptide Total Protein Albumin Globulin Albumin/Globulin Ratio Triglycerides 126 Cholesterol 181 LDL Cholesterol, Calc 111 HDL Cholesterol 45 Cholesterol/HDL Ratio 4.0 Lipase Procalcitonin TSH Ur Collection Type Urine Color Urine Clarity Urine pH Ur Specific [place] Urine Protein Urine Glucose (UA) Urine Ketones Urine Blood Urine Nitrite Urine Bilirubin Urine Urobilinogen (Auto) Ur Leukocyte Esterase Urine RBC Urine WBC Ur Squamous Epith Cells Urine Bacteria Ur Culture Indicated? Urine Opiates Screen Urine Fentanyl Screen Ur Barbiturates Screen U Amphetamin/Meth Scrn U Benzodiazepines Scrn U Cocaine Metab Screen U Marijuana (THC) Screen Ethyl Alcohol ABG Interpretation ABG results: 05/04/25 04:46 ABG pH 7.45 ABG pCO2 35 ABG pO2 71 L ABG HCO3 24 ABG O2 Saturation 94 ABG Base Excess 1 Quality Measures Quality Measures VTE prophylaxis Assessment & Plan Assessment Current Active Medications: Generic Name Dose Route Start Last Admin Trade Name Freq PRN Reason Stop Dose Admin Acetaminophen 650 mg 05/04/25 06:08 Acetaminophen 325 Mg Tablet PO 06/03/25 06:07 Q6H PRN Fever >100.4 Acetaminophen 650 mg 05/04/25 06:08 Acetaminophen 325 Mg Tablet PO 06/03/25 06:07 Q6H PRN PAIN SCALE 1-3 (mild Aspirin 81 mg 05/04/25 09:00 05/04/25 09:13 Aspirin Ec 81 Mg Tabec PO 06/03/25 08:59 81 mg QDAY KISHA Administration Carvedilol 25 mg 05/04/25 08:00 05/04/25 09:13 Carvedilol 12.5 Mg Tablet PO 06/03/25 07:59 25 mg BIDWM KISHA Administration Furosemide 40 mg 05/04/25 18:00 Furosemide Inj 10 Mg/Ml 4ml Vial IVP 06/03/25 17:59 BIDD KISHA Heparin Sodium (Porcine) 5,000 unit 05/04/25 09:00 05/04/25 09:13 Heparin Sod Inj 5000 Unit/Ml Vial SC 05/18/25 08:59 5,000 unit Q12HR KISHA Administration Nitroglycerin 0.4 mg 05/04/25 06:31 Nitroglycerin 0.4 Mg Subl Btl #25 SL Q5MIN PRN CHEST PAIN Ondansetron HCl 4 mg 05/04/25 06:08 Ondansetron Inj 2 Mg/Ml Inj 2 Ml IVP 06/03/25 06:07 Q6H PRN NAUSEA OR VOMITING Protocol Plan 59-year-old male with HFrEF (EF 25?30%), HTN, meth use, and medication noncompliance presenting with acute hypoxic respiratory failure, hypertensive emergency, and type 2 NSTEMI. Patient BP is improving. #Acute hypoxic respiratory failure 2/2 HFrEF exacerbation # Acute on chronic systolic (congestive) heart failure Patient with EF 25?30% presents with worsening SOB, hypertensive crisis, diffuse rales, pulmonary vascular congestion on CXR, BNP 485, ABG: pO2: 71, and non- compliance with Lasix for 1 month. Triggered by meth use. On repeat exam (05/04) lungs clear, no JVD, +2 pedal edema. Plan: * Admit to telemetry * BiPAP support, titrate O2 for SpO2 >92% * Furosemide 40 mg IV BID * Strict I/Os, daily weights * 1.5 L fluid restriction, 2 g sodium diet * Daily BMP, Mg, Phos; replete electrolytes as needed * TTE ordered --> FUP Cards Recommendations: ? Echocardiogram ordered ? Continue guideline directed medical therapy as Nata tolerates, continue Coreg 25 mg twice daily, lisinopril 10 mg daily, furosemide 40 mg twice daily. -Will hold Beta Blockers pending cardio resuming ? Strict intake and output monitoring ? Continue monitoring electrolytes, avoid hypomagnesemia and hypokalemia dependence arrhythmias. ? 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 ? Also noted polycythemia will order iron studies and Ferretin to r/o hemochromatosis. ? Fluid restriction to 1200 cc daily, target upto 1.5 L net negative urine output per day. ? Continue NIPPV as indicated. ? Patient will benefit from addition of SGLT2i and MRA if stable renal function and no hyperkalemia. # Hypertensive emergency - Improving Presented with BP 211/149, pulmonary edema. Treated in ED with clonidine, NTG, metoprolol. BP improved to 119/57, HR: 58. Plan: * Hold carvedilol (hold if SBP <100 or HR <60) * NTG PRN * Hold lisinopril until renal function clarified * Monitor BP closely on telemetry # NSTEMI type 2 Mild troponin elevation (0.081) in the setting of hypertensive emergency and acute decompensated HF. No chest pain. Likely demand ischemia. Plan: * Trend troponins ?2 more * Monitor on telemetry * Repeat EKG PRN chest pain or arrhythmia * Optimize BP and volume status (as above) #Polycythemia Elevated hemoglobin and low iron, normal ferritin, normal MCV. Most likely due to chronic hypoxia from smoking and meth use combined with inflammation from CKD. Plan: -FUP CBCs # Acute kidney injury on CKD # Cardiorenal Syndrome Creatinine 1.9 (baseline ~1.6?1.7), could be chronic vs mild WILMA with congestion. Plan: * Daily BMP * Avoid nephrotoxins * Treat CHF as above * Hold lisinopril until renal function stabilizes # Methamphetamine use disorder Recent use (2?3 days ago) likely trigger for hypertensive crisis and CHF exacerbation. 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 Jennifer Plunkett MD PGY-1 Internal Medicine Attending Provider Attestation/Addendum I have discussed and was present for the essential components of the history, physical examination, diagnosis, and treatment plan with the resident. I agree with the patient's care as documented by the resident and amended herein by me. Faraz Rodriguez DO. Although this document has been carefully reviewed, there may still be some phonetic and other typographical errors. These errors are purely grammatical due to imperfections in the software program and should not be construed in any way to compromise the substance of the patient's medical care during this visit.
[2025-05-04 18:58] LABS: Troponin I 0.045 ng/mL (0.0-0.045)
[2025-05-04] MEDS: APIXABAN 2.5 MG TABLET PO (20:59)
[2025-05-04] MEDS: ACETAMINOPHEN 325 MG TABLET 650 MG PO (20:59)
[2025-05-04] MEDS: ALBUTEROL/IPRATROPIUM (Duoneb) RT SOL 3 ML NEBU INH (22:26)
[2025-05-05] VITALS (13 sets, daily range): BP systolic 121–152; BP diastolic 82–108; PULSE 56–106; RESP 15–19; TEMP 36.1–36.8; O2SAT 95–100; BMI 26.8
[2025-05-05 06:04] LABS: Basophils # (Auto) 0.1 Thou/mm3 (0.0-0.2); Basophils % (Auto) 1 % (0-2.5); Eosinophils # (Auto) 0.8 Thou/mm3 (0.0-0.5); Eosinophils % (Auto) 6 % (0-10); Hematocrit 46.2 % (41.0-53.0); Hemoglobin 14.9 g/dL (13.5-16.0); Immature Granulocytes Auto 0.04 Thou/mm3 (0.00-0.00); Lymphocytes # (Auto) 2.1 Thou/mm3 (1.0-4.8); Lymphocytes % (Auto) 16 % (10-50); Mean Corpuscular HGB Conc 32.3 g/dl (31.0-37.0); Mean Corpuscular Hemoglobin 29.2 pg (25.0-35.0); Mean Corpuscular Volume 91 fL (80-100); Monocytes # (Auto) 1.2 Thou/mm3 (0.0-0.8); Monocytes % (Auto) 9 % (0-12); Neutrophils # (Auto) 9.2 Thou/mm3 (1.8-7.7); Neutrophils % (Auto) 69 % (37-80); Nucleated Red Blood Cell # 0.00 Thou/mm3 (0.00-0.00); Nucleated Red Blood Cell % 0 /100 WBC (0); Platelet Count 246 Thou/mm3 (140-440); RDW Standard Deviation 46.8 fL (35.1-43.9); Red Blood Count 5.10 Miln/mm3 (4.50-5.90); White Blood Count 13.3 Thou/mm3 (3.8-10.6)
[2025-05-05] MEDS: ALBUTEROL/IPRATROPIUM (Duoneb) RT SOL 3 ML NEBU INH ×3 (06:14→22:46)
[2025-05-05 06:30] LABS: Anion Gap 10 (7-16); BUN/Creatinine Ratio 11 Ratio (12-20); Blood Urea Nitrogen 18 mg/dL (9-23); Calcium 9.1 mg/dL (8.3-10.6); Carbon Dioxide 27.3 mMol/L (20.0-31.0); Chloride 101 mMol/L (98-107); Creatinine (Component) 1.7 mg/dL (0.6-1.3); Estimated Creatinine Clearance 36.9 mL/min (>60); Glucose 99 mg/dL (74-106); Magnesium 2.1 mg/dL (1.6-2.6); Osmolality,Calculated 277 (275-295); Phosphorous 3.3 mg/dL (2.4-5.1); Potassium 4.0 mMol/L (3.4-5.1); Sodium 138 mMol/L (136-145); eGFR 45 See Note
[2025-05-05] MEDS: ASPIRIN EC 81 MG TABEC PO (08:35)
[2025-05-05] MEDS: FUROSEMIDE INJ 10 MG/ML 4ML VIAL 40 MG IVP ×2 (08:36→17:42)
[2025-05-05 08:48] LABS: Alanine Aminotransferase 15 U/L (10-49); Albumin, Serum 3.8 gm/dL (3.4-4.8); Alkaline Phosphatase 111 U/L (46-116); Aspartate Amino Transferase 19 U/L (0-34); Bilirubin,Direct < 0.1 mg/dL (0.0-0.3); Bilirubin,Total 0.3 mg/dL (0.3-1.2); Total Protein 6.6 gm/dL (5.7-8.2)
--- NOTE | 2025-05-05 09:45 | ESPR_ITS ---
<Statement entered by Maylin Whitman MD - 05/05/25 17:08> Patient was seen and examined at bedside. Today is vitally stable, remains on 3 L of oxygen. WBC downtrending to 13.3 from 15.2, hemoglobin 14.9, serum creatinine trended down to baseline 1.7. Still pending the echo for the patient, was started the patient on GDMT including dapagliflozin, lisinopril, spironolactone, carvedilol, atorvastatin, and aspirin. Patient still +640, will continue diuresing the patient with Lasix 40 mg IV twice daily. pending echo and cardio recommendations. - Patient's plan and care discussed with my attending, Dr. Jennifer Whitman MD Internal Medicine PGY-3 Documentation for date of: 05/05/25 Subjective Subjective Interval history: Patient examined bedside, on 2L nasal cannula 99%. -840 mL input net 24 hours. He reports feeling a lot better ongoing SOB and cough. Denies chest pain, headaches, hematuria, hemoptysis, vision changes, hearing changes. Exam Vital Signs Temp Pulse Resp BP Pulse Ox O2 Del Method O2 Flow Rate 98.1 F 88 19 152/102 H 98 Nasal Cannula 2 05/05/25 08:00 05/05/25 08:36 05/05/25 08:00 05/05/25 08:36 05/05/25 08:00 05/05/25 08:00 05/05/25 08:00 FiO2 30 05/04/25 08:17 Narrative Exam General: AOx3, cooperative Skin: Intact, no cyanosis noted. Noted extensive tattoos over anterior chest back and arms. Trace pedal edema bilateral lower extremities extending up to mid hernandes. HEENT: Atraumatic/normocephalic, ADALBERTO, neck supple Heart: RRR, S1 and S2 without clicks or murmurs. No JVD noted Lungs: Noted basal crackles and bilateral wheezing in lower and mid zones on auscultation, 2L nasal cannula 99% Abdomen: Soft, nontender. Bowel sounds present . Vascular: Peripheral pulses palpable Neuro: No focal neurological deficits noted. Objective Labs 05/05/25 04:57 05/05/25 04:57 Labs: Laboratory Results - last 24 hr 05/04/25 05/04/25 05/04/25 04:10 07:15 12:59 WBC RBC Hgb Hct MCV MCH MCHC RDW Std Deviation Plt Count Neut % (Auto) Lymph % (Auto) [place] % (Auto) Eos % (Auto) Baso % (Auto) Neut # (Auto) Lymph # (Auto) [place] # (Auto) Eos # (Auto) Baso # (Auto) Immature Gran # (Auto) Absolute Nucleated RBC Immature Gran % Nucleated RBC % Sodium Potassium Chloride Carbon Dioxide Anion Gap BUN Creatinine Estim Creat Clear Calc eGFR BUN/Creatinine Ratio Glucose Calculated Osmolality Calcium Phosphorus Magnesium Iron 37 L TIBC 303 Iron Saturation 12 L Unsat Iron Binding 266 Ferritin 175 Total Bilirubin Direct Bilirubin AST ALT Alkaline Phosphatase Troponin I 0.054 H* Total Protein Albumin Triglycerides 126 Cholesterol 181 LDL Cholesterol, Calc 111 HDL Cholesterol 45 Cholesterol/HDL Ratio 4.0 05/04/25 05/05/25 18:14 04:57 WBC 13.3 H RBC 5.10 Hgb 14.9 Hct 46.2 MCV 91 MCH 29.2 MCHC 32.3 RDW Std Deviation 46.8 H Plt Count 246 D Neut % (Auto) 69 Lymph % (Auto) 16 [place] % (Auto) 9 Eos % (Auto) 6 Baso % (Auto) 1 Neut # (Auto) 9.2 H Lymph # (Auto) 2.1 [place] # (Auto) 1.2 H Eos # (Auto) 0.8 H Baso # (Auto) 0.1 Immature Gran # (Auto) 0.04 H Absolute Nucleated RBC 0.00 Immature Gran % 0 Nucleated RBC % 0 Sodium 138 Potassium 4.0 Chloride 101 Carbon Dioxide 27.3 Anion Gap 10 BUN 18 Creatinine 1.7 H Estim Creat Clear Calc 36.9 L eGFR 45 L BUN/Creatinine Ratio 11 L Glucose 99 Calculated Osmolality 277 Calcium 9.1 Phosphorus 3.3 Magnesium 2.1 Iron TIBC Iron Saturation Unsat Iron Binding Ferritin Total Bilirubin 0.3 Direct Bilirubin < 0.1 AST 19 ALT 15 Alkaline Phosphatase 111 D Troponin I 0.045 Total Protein 6.6 Albumin 3.8 D Triglycerides Cholesterol LDL Cholesterol, Calc HDL Cholesterol Cholesterol/HDL Ratio ABG Interpretation ABG results: 05/04/25 04:46 ABG pH 7.45 ABG pCO2 35 ABG pO2 71 L ABG HCO3 24 ABG O2 Saturation 94 ABG Base Excess 1 Quality Measures Quality Measures VTE prophylaxis Assessment & Plan Assessment Current Active Medications: Generic Name Dose Route Start Last Admin Trade Name Freq PRN Reason Stop Dose Admin Acetaminophen 650 mg 05/04/25 06:08 Acetaminophen 325 Mg Tablet PO 06/03/25 06:07 Q6H PRN Fever >100.4 Acetaminophen 650 mg 05/04/25 06:08 05/04/25 20:59 Acetaminophen 325 Mg Tablet PO 06/03/25 06:07 650 mg Q6H PRN Administration PAIN SCALE 1-3 (mild Albuterol/Ipratropium 3 ml 05/04/25 23:00 05/05/25 06:14 Albuterol/Ipratropium (Duoneb) Rt Sarah 3 Ml Nebu INH 06/03/25 22:59 3 ml Q8HRRT KISHA Administration Apixaban 2.5 mg 05/04/25 21:00 05/04/25 20:59 Apixaban 2.5 Mg Tablet PO 06/03/25 20:59 2.5 mg BID KISHA Administration Aspirin 81 mg 05/04/25 09:00 05/05/25 08:35 Aspirin Ec 81 Mg Tabec PO 06/03/25 08:59 81 mg QDAY KISHA Administration Atorvastatin Calcium 40 mg 05/05/25 21:00 Atorvastatin Calcium 20 Mg Tablet PO 06/04/25 20:59 HS KISHA Carvedilol 25 mg 05/04/25 08:00 05/04/25 09:13 Carvedilol 12.5 Mg Tablet PO 06/03/25 07:59 25 mg BIDWM KISHA Administration Furosemide 40 mg 05/05/25 09:00 05/05/25 08:36 Furosemide Inj 10 Mg/Ml 4ml Vial IVP 06/04/25 08:59 40 mg QDAY KISHA Administration Lisinopril 20 mg 05/05/25 09:00 05/05/25 08:35 Lisinopril 20 Mg Tablet PO 06/04/25 08:59 20 mg QDAY KISHA Administration Nitroglycerin 0.4 mg 05/04/25 06:31 Nitroglycerin 0.4 Mg Subl Btl #25 SL Q5MIN PRN CHEST PAIN Ondansetron HCl 4 mg 05/04/25 06:08 Ondansetron Inj 2 Mg/Ml Inj 2 Ml IVP 06/03/25 06:07 Q6H PRN NAUSEA OR VOMITING Protocol Plan 59-year-old male with HFrEF (EF 25?30%), HTN, meth use, and medication noncompliance presenting with acute hypoxic respiratory failure, hypertensive emergency, and type 2 NSTEMI. Patient BP is improving. #Acute hypoxic respiratory failure 2/2 HFrEF exacerbation # Acute on chronic systolic (congestive) heart failure Patient with EF 25?30% presents with worsening SOB, hypertensive crisis, diffuse rales, pulmonary vascular congestion on CXR, BNP 485, ABG: pO2: 71, and non- compliance with Lasix for 1 month. Triggered by meth use. Today bilateral wheezing, no JVD, +1 pedal edema. Now on nasal cannula 2L 99%. Crackles still present on lung exam, pedal edema much improved Plan: * Admit to telemetry * BiPAP support, titrate O2 for SpO2 >92% * Furosemide 40 mg IV BID * Strict I/Os, daily weights * 1.5 L fluid restriction, 2 g sodium diet * Daily BMP, Mg, Phos; replete electrolytes as needed * ECHO --> FUP * Cards Recs: carvedilol 25 mg PO BIDWM, lisinopril 20 mg PO QD, spironolactone 25 mg PO QD, dapagliflozin 10 mg PO QD. * Cards cont: Continue monitoring electrolytes, avoid hypomagnesemia and hypokalemia dependence arrhythmias. * Outpatient work up per cards. # Hypertensive emergency - Improving Presented with BP 211/149, pulmonary edema. Treated in ED with clonidine, NTG, metoprolol. BP improved to 119/57, HR: 58. Plan: * Hold carvedilol (hold if SBP <100 or HR <60) * NTG PRN * Monitor BP closely on telemetry # NSTEMI type 2 Mild troponin elevation (0.081) in the setting of hypertensive emergency and acute decompensated HF. No chest pain. Likely demand ischemia. Plan: * Trend troponins ?2 more - Resolved * Monitor on telemetry * Repeat EKG PRN chest pain or arrhythmia * Optimize BP and volume status (as above) #Polycythemia - resolved Elevated hemoglobin and low iron, normal ferritin, normal MCV. Most likely due to chronic hypoxia from smoking and meth use combined with inflammation from CKD. Plan: -FUP CBCs # Acute kidney injury on CKD # Cardiorenal Syndrome Creatinine 1.9 (baseline ~1.6?1.7), could be chronic vs mild WILMA with congestion. Today creatinine 1.7 Plan: * Daily BMP * Avoid nephrotoxins * Treat CHF as above * Hold lisinopril until renal function stabilizes # Methamphetamine use disorder Recent use (2?3 days ago) likely trigger for hypertensive crisis and CHF exacerbation. 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 Rodriguez and supervising resident Dr. Antonette Plunkett MD PGY-1 Internal Medicine Attending Provider Attestation/Addendum I have discussed and was present for the essential components of the history, physical examination, diagnosis, and treatment plan with the resident. I agree with the patient's care as documented by the resident and amended herein by me. Faraz Rodriguez DO. Although this document has been carefully reviewed, there may still be some phonetic and other typographical errors. These errors are purely grammatical due to imperfections in the software program and should not be construed in any way to compromise the substance of the patient's medical care during this visit. Patient seen and evaluated this AM. No acute events overnight, I/O20 140/1500 mL overnight. Patient normotensive in the AM. Chest x-ray demonstrating vascular congestion. Labs largely unremarkable, WBC 13, creatinine downtrending to 1.7, baseline is approximately 1.6. Echo pending, GDMT restarted to include the patient's lisinopril, Coreg, will also add MRA and SGLT2 inhibitor as tolerated. Cardiology consulted, appreciate recommendations.
[2025-05-05] MEDS: SPIRONOLACTONE 25 MG TABLET PO (10:38)
[2025-05-05] MEDS: DAPAGLIFLOZIN PROPANEDIOL 5 MG TABLET 10 MG PO (14:39)
[2025-05-05] MEDS: HEPARIN SOD INJ 5000 UNIT/ML VIAL SC ×2 (14:39→21:36)
--- NOTE | 2025-05-05 15:05 | PC.SS ---
1505- Per afternoon rounding note, pt remains on IV Antibiotics and residents will be reaching out to cardiology for recs. Possible d/c on Wednesday.
--- NOTE | 2025-05-05 17:46 | PD.RESPRO ---
Documentation for date of: 05/05/25 Subjective Subjective Interval history: 05/05/2025: Pt was seen resting in bed comfortably and examined. He reports improvement in symptoms. BP 152/102, HR 88, RR 19, T 98.8, satting 98% on NC O2 2L. Labs sgnificant for K+ 4.0, Mg 2.1, Cr 1.7. BUN 18, Hgb 14.9. serum iron 37 (L), iron sat 12 (L), TIBC 303, unsaturated iron binding 266. The patient is a 59-year-old male with a past medical history of HFrEF, diagnosed in 2023, CKD stage III, hypertension, substance abuse disorder including methamphetamine, noncompliance with medications, chronic smoker who presented to the ED complaining of worsening shortness of breath for the past 4 days. Patient reported that he went for a swim in the river 4 days ago and after that has been feeling short of breath. Patient endorses he is established with day care center director in [place] Dr[address] [place], and had echocardiogram and treadmill stress test done a few weeks ago, but has not followed up with appointment for results. Patient reported he has orthopnea PND and dyspnea on exertion. But denied chest pain or pressure. Denied fever or cough. Denies sputum production. Patient does have extensive history of smoking, has never been formally diagnosed with COPD, but has been using inhalers occasionally which do provide some respiratory relief. In the ED, initial vitals on presentation were blood pressure 197/127, pulse 124/min, respiratory 36/min, saturating 95% on room air, later patient was noted to be hypoxic in the ED and was started on BiPAP, currently saturating 93% on BiPAP 30% FiO2 10/15. EKG was done in the ED which shows T wave inversion in the lateral leads, consistent with old EKG changes. No new ischemic changes noted on EKG . Initial labs showed leukocytosis WBC 15.2, polycythemia hemoglobin 16.2 platelets 313, ESR 31, negative D-dimers, ABG was done this morning which shows hypoxia ABG PO271 on 30% FiO2, ABG SpO2 94%. CHEM panel shows normal sodium and potassium but elevated creatinine 1.9, EGFR 40 of note patient does have some elevation of creatinine in the past, baseline seems to be around 1.6, A1c 6.3%, noted slightly elevated troponin 0.081, already peaked, elevated BNP 45, negative procalcitonin, urinalysis unremarkable, U tox positive for methamphetamines. Chest x-ray shows mild enlargement of cardiac contour no pneumonia or mayra pulmonary edema seen Exam Vital Signs Temp Pulse Resp BP Pulse Ox O2 Del Method O2 Flow Rate 97.1 F 68 16 133/108 H 97 Nasal Cannula 3 05/05/25 16:00 05/05/25 17:42 05/05/25 16:00 05/05/25 17:42 05/05/25 16:00 05/05/25 16:00 05/05/25 16:00 FiO2 30 05/04/25 08:17 Narrative Exam General: AOx3, cooperative Skin: Intact, no cyanosis noted. Noted extensive tattoos over anterior chest back and arms. 2+ pitting edema bilateral lower extremities extending up to mid hernandes. HEENT: Atraumatic/normocephalic, ADALBERTO, neck supple Heart: RRR, S1 and S2 without clicks or murmurs Lungs: Noted bilateral wheezing in lower and mid zones on auscultation, currently on 2L NC O2 and saturating 98%. Abdomen: Soft, nontender. Bowel sounds present . Vascular: Peripheral pulses palpable Neuro: No focal neurological deficits noted. Objective Labs 05/06/25 05:42 05/06/25 05:42 Labs: Laboratory Results - last 24 hr 05/04/25 05/05/25 18:14 04:57 WBC 13.3 H RBC 5.10 Hgb 14.9 Hct 46.2 MCV 91 MCH 29.2 MCHC 32.3 RDW Std Deviation 46.8 H Plt Count 246 D Neut % (Auto) 69 Lymph % (Auto) 16 Burnet % (Auto) 9 Eos % (Auto) 6 Baso % (Auto) 1 Neut # (Auto) 9.2 H Lymph # (Auto) 2.1 Burnet # (Auto) 1.2 H Eos # (Auto) 0.8 H Baso # (Auto) 0.1 Immature Gran # (Auto) 0.04 H Absolute Nucleated RBC 0.00 Immature Gran % 0 Nucleated RBC % 0 Sodium 138 Potassium 4.0 Chloride 101 Carbon Dioxide 27.3 Anion Gap 10 BUN 18 Creatinine 1.7 H Estim Creat Clear Calc 36.9 L eGFR 45 L BUN/Creatinine Ratio 11 L Glucose 99 Calculated Osmolality 277 Calcium 9.1 Phosphorus 3.3 Magnesium 2.1 Total Bilirubin 0.3 Direct Bilirubin < 0.1 AST 19 ALT 15 Alkaline Phosphatase 111 D Troponin I 0.045 Total Protein 6.6 Albumin 3.8 D ABG Interpretation ABG results: 05/04/25 04:46 ABG pH 7.45 ABG pCO2 35 ABG pO2 71 L ABG HCO3 24 ABG O2 Saturation 94 ABG Base Excess 1 Quality Measures Quality Measures VTE prophylaxis Assessment & Plan Assessment Current Active Medications: Generic Name Dose Route Start Last Admin Trade Name Freq PRN Reason Stop Dose Admin Acetaminophen 650 mg 05/04/25 06:08 Acetaminophen 325 Mg Tablet PO 06/03/25 06:07 Q6H PRN Fever >100.4 Acetaminophen 650 mg 05/04/25 06:08 05/04/25 20:59 Acetaminophen 325 Mg Tablet PO 06/03/25 06:07 650 mg Q6H PRN Administration PAIN SCALE 1-3 (mild Albuterol/Ipratropium 3 ml 05/04/25 23:00 05/05/25 14:47 Albuterol/Ipratropium (Duoneb) Rt Sarah 3 Ml Nebu INH 06/03/25 22:59 3 ml Q8HRRT KISHA Administration Aspirin 81 mg 05/04/25 09:00 05/05/25 08:35 Aspirin Ec 81 Mg Tabec PO 06/03/25 08:59 81 mg QDAY KISHA Administration Atorvastatin Calcium 40 mg 05/05/25 21:00 Atorvastatin Calcium 20 Mg Tablet PO 06/04/25 20:59 HS KISHA Carvedilol 25 mg 05/04/25 08:00 05/05/25 17:42 Carvedilol 12.5 Mg Tablet PO 06/03/25 07:59 25 mg BIDWM KISHA Administration Dapagliflozin 10 mg 05/05/25 14:30 05/05/25 14:39 Dapagliflozin Propanediol 5 Mg Tablet PO 06/04/25 14:29 10 mg QAM KISHA Administration Furosemide 40 mg 05/05/25 18:00 05/05/25 17:42 Furosemide Inj 10 Mg/Ml 4ml Vial IVP 06/04/25 17:59 40 mg BIDD KISHA Administration Heparin Sodium (Porcine) 5,000 unit 05/05/25 14:00 05/05/25 14:39 Heparin Sod Inj 5000 Unit/Ml Vial SC 05/19/25 13:59 5,000 unit Q8HR KISHA Administration Lisinopril 20 mg 05/05/25 09:00 05/05/25 08:35 Lisinopril 20 Mg Tablet PO 06/04/25 08:59 20 mg QDAY KISHA Administration Nitroglycerin 0.4 mg 05/04/25 06:31 Nitroglycerin 0.4 Mg Subl Btl #25 SL Q5MIN PRN CHEST PAIN Ondansetron HCl 4 mg 05/04/25 06:08 Ondansetron Inj 2 Mg/Ml Inj 2 Ml IVP 06/03/25 06:07 Q6H PRN NAUSEA OR VOMITING Protocol Spironolactone 25 mg 05/05/25 10:15 05/05/25 10:38 Spironolactone 25 Mg Tablet PO 06/04/25 10:14 25 mg QDAY KISHA Administration Plan The patient is a 59-year-old male with a past medical history of HFrEF, diagnosed in 2023, CKD stage III, diabetes, hypertension, substance abuse disorder including methamphetamine, noncompliance with medications, chronic smoker who presented to the ED complaining of worsening shortness of breath for the past 4 days. Patient reported that he went for a swim in the river 4 days ago and after that has been feeling short of breath. Patient endorses he is established with day care center director in [place] Dr[address] [place], and had echocardiogram and treadmill stress test done a few weeks ago, but has not followed up with appointment for results. Patient reported he has orthopnea PND and dyspnea on exertion. But denied chest pain or pressure. Denied fever or cough. Denies sputum production. Patient does have extensive history of smoking, has never been formally diagnosed with COPD, but has been using inhalers occasionally which do provide some respiratory relief. In the ED, initial vitals on presentation were blood pressure 197/127, pulse 124/min, respiratory 36/min, saturating 95% on room air, later patient was noted to be hypoxic in the ED and was started on BiPAP, currently saturating 93% on BiPAP 30% FiO2 10/15. EKG was done in the ED which shows T wave inversion in the lateral leads, consistent with old EKG changes. No new ischemic changes noted on EKG per my interpretation. Initial labs showed leukocytosis WBC 15.2, polycythemia hemoglobin 16.2 platelets 313, ESR 31, negative D-dimers, ABG was done this morning which shows hypoxia ABG PO271 on 30% FiO2, ABG SpO2 94%. CHEM panel shows normal sodium and potassium but elevated creatinine 1.9, EGFR 40 of note patient does have some elevation of creatinine in the past, baseline seems to be around 1.6, A1c 6.3%, noted slightly elevated troponin 0.081, already peaked, elevated BNP 45, negative procalcitonin, urinalysis unremarkable, U tox positive for methamphetamines. Chest x-ray shows mild enlargement of cardiac contour no pneumonia or mayra pulmonary edema seen. In the ED patient was given furosemide 80 mg IV x 1, IV morphine 2 mg x 1, nitroglycerin patch was placed, clonidine 0.2 mg x 1 metoprolol tartrate 50 mg x 1, resumed home medications including carvedilol 25 mg twice daily aspirin 81 mg, electrolytes including potassium and magnesium were replaced. Past medical history: History of heart failure with reduced action fraction, EF 20 to 25% on previous echocardiogram in 2023, CKD stage III, diabetes mellitus history of noncompliance with medications, hypertension, substance abuse disorder including mental phentermine, chronic smoker more than [id number] smoking history. Family history: History of cardiac disorders in mom, with a heart attack in her 50s Social history: Patient lives alone, endorsed occasional alcohol use, methamphetamine use, last use was 2 days ago, and smoking. More than 20 pack years. Home medications: Carvedilol, lisinopril, aspirin and Lasix. History of noncompliance with medications. Problems: 1. NSTEMI likely type II 2. Acute on chronic CHF, likely dilated cardiomyopathy 3. Acute hypoxic respiratory failure 4. Hypertensive urgency 5. Methamphetamine abuse 6. Chronic smoker , COPD 7. Prediabetes 8. History of hypertension 9. History of CKD 10. Polycythemia, likely 2/2 chronic smoking Patient complaining of sudden onset chest pain 4 days ago, had orthopnea PND and dyspnea on exertion. Currently NYHA class IVsymptoms, patient might require workup of chronic artery disease and ischemia, previous treadmill stress testing done at day care center director office outpatient, recommend getting medical records.Patient stated his symptoms started after he went for a swim in the river. But denied any fever or cough, does not think he has pneumonia. Chest x-ray negative for pneumonia, did notice leukocytosis possibly reactive. Symptoms likely related to acute on chronic CHF, prior echocardiogram from 2023 shows severe systolic dysfunction, severe global hypokinesis, estimated EF 25 to 30%, stage II diastolic dysfunction. Mild AV sclerosis without stenosis. Patient received 80 mg IV Lasix x 1 in the ED. He reported improvement in symptoms, currently on BiPAP. Currently started on beta-blockers and JANIE inhibitors as part of GDMT, will continue guideline directed medical therapy as blood pressure tolerates. The patient denied any diagnosis of COPD or asthma in the past, but has a history of chronic smoking over 20 pack years, reported he has been prescribed inhalers in the past which did help with his symptoms, currently physical exam pertinent for basal crackles as well as wheezing in the mid to lower lung zones. Consider COPD, if patient continues to be short of breath might benefit from nebulizations in addition to diuresis. Denied having any chest pain or pressure on this occurrence, also denied history of prior myocardial infarction in the past. Did endorse methamphetamine abuse, echocardiogram also shows global hypokinesis and severe systolic dysfunction, consistent with dilated cardiomyopathy likely in the setting of methamphetamine abuse. Patient does have risk factors for coronary artery disease, will benefit from outpatient workup to rule out ischemic heart disease. EKG was done in the ED which shows T wave inversion in the lateral leads, consistent with old EKG changes. Slight troponin elevation already peaked at 0.08, likely type II NSTEMI in the setting of hypoxia. Counseled regarding discontinuing methamphetamine, discontinuing smoking. Patient has no reported history of diabetes, A1c 6.3%, prediabetic range, no previous A1c on file, patient would benefit from addition of SGLT2 as well as diabetic education and risk factor modification. Noted elevated creatinine multiple labs during previous hospital visit, patient is not following with a rn assessment, likely has CKD stage III in the setting of diabetes mellitus and illicit drug abuse. Patient will benefit from outpatient nephrology workup. Recommendations: ? Echocardiogram ordered ? Continue guideline directed medical therapy as Eliquis tolerates, continue Coreg 25 mg twice daily, lisinopril 10 mg daily, furosemide 40 mg twice daily. ? Strict intake and output monitoring ? Continue monitoring electrolytes, avoid hypomagnesemia and hypokalemia dependence arrhythmias. ? Currently symptoms NYHA class IV, patient might require workup of chronic artery disease and ischemia, previous treadmill stress testing done at day care center director office outpatient, recommend getting medical records. ? Also noted polycythemia will order iron studies and Ferretin to r/o hemochromatois. ? Fluid restriction to 1200 cc daily, target upto 1.5 L net negative urine output per day. ? Continue NIPPV as indicated. ? Patient will benefit from addition of SGLT2i and MRA if stable renal function and no hyperkalemia. Rest of the management deferred to primary team. Attending Provider Attestation/Addendum I have personally seen and examined the patient separately on the above date of service and discussed the plan of care with the resident. I reviewed the resident consultation progress note and agree with the resident findings and plan in the note above and have also edited the documentation to reflect my findings and plan. Percy Paul M.D. Interventional Cardiology
[2025-05-05] MEDS: ACETAMINOPHEN 325 MG TABLET 650 MG PO (21:36)
[2025-05-05] MEDS: ATORVASTATIN CALCIUM 20 MG TABLET 40 MG PO (21:36)
[2025-05-06] VITALS (9 sets, daily range): BP systolic 102–140; BP diastolic 65–107; PULSE 76–105; RESP 15–19; TEMP 36–36.2; O2SAT 95–100; BMI 26.5
[2025-05-06] MEDS: FUROSEMIDE INJ 10 MG/ML 4ML VIAL 40 MG IVP (05:23)
[2025-05-06] MEDS: DOCUSATE SOD 100 MG CAPSULE PO (05:23)
[2025-05-06] MEDS: HEPARIN SOD INJ 5000 UNIT/ML VIAL SC (05:24)
[2025-05-06 06:17] LABS: Basophils # (Auto) 0.1 Thou/mm3 (0.0-0.2); Basophils % (Auto) 1 % (0-2.5); Eosinophils # (Auto) 0.4 Thou/mm3 (0.0-0.5); Eosinophils % (Auto) 2 % (0-10); Hematocrit 54.3 % (41.0-53.0); Hemoglobin 17.9 g/dL (13.5-16.0); Immature Granulocytes Auto 0.09 Thou/mm3 (0.00-0.00); Lymphocytes # (Auto) 2.2 Thou/mm3 (1.0-4.8); Lymphocytes % (Auto) 14 % (10-50); Mean Corpuscular HGB Conc 33.0 g/dl (31.0-37.0); Mean Corpuscular Hemoglobin 28.8 pg (25.0-35.0); Mean Corpuscular Volume 87 fL (80-100); Monocytes # (Auto) 1.5 Thou/mm3 (0.0-0.8); Monocytes % (Auto) 9 % (0-12); Neutrophils # (Auto) 12.0 Thou/mm3 (1.8-7.7); Neutrophils % (Auto) 74 % (37-80); Nucleated Red Blood Cell # 0.00 Thou/mm3 (0.00-0.00); Nucleated Red Blood Cell % 0 /100 WBC (0); Platelet Count 301 Thou/mm3 (140-440); RDW Standard Deviation 43.4 fL (35.1-43.9); Red Blood Count 6.22 Miln/mm3 (4.50-5.90); White Blood Count 16.2 Thou/mm3 (3.8-10.6)
[2025-05-06] MEDS: ALBUTEROL/IPRATROPIUM (Duoneb) RT SOL 3 ML NEBU INH (06:37)
[2025-05-06 07:07] LABS: Alanine Aminotransferase 18 U/L (10-49); Albumin, Serum 4.2 gm/dL (3.4-4.8); Albumin/Globulin Ratio 1.3 (1.2-2.2); Alkaline Phosphatase 121 U/L (46-116); Anion Gap 13 (7-16); Aspartate Amino Transferase 20 U/L (0-34); BUN/Creatinine Ratio 17 Ratio (12-20); Bilirubin,Total 0.5 mg/dL (0.3-1.2); Blood Urea Nitrogen 25 mg/dL (9-23); Calcium 9.9 mg/dL (8.3-10.6); Calcium (Corrected) 9.9 mg/dL (8.5-10.1); Carbon Dioxide 24.8 mMol/L (20.0-31.0); Chloride 97 mMol/L (98-107); Creatinine (Component) 1.5 mg/dL (0.6-1.3); Estimated Creatinine Clearance 41.6 mL/min (>60); Globulin 3.2 gm/dL (2.3-3.5); Glucose 121 mg/dL (74-106); Magnesium 2.0 mg/dL (1.6-2.6); Osmolality,Calculated 275 (275-295); Phosphorous 3.3 mg/dL (2.4-5.1); Potassium 3.7 mMol/L (3.4-5.1); Sodium 135 mMol/L (136-145); Total Protein 7.4 gm/dL (5.7-8.2); eGFR 53 See Note
[2025-05-06] MEDS: ASPIRIN EC 81 MG TABEC PO (08:58)
[2025-05-06] MEDS: SPIRONOLACTONE 25 MG TABLET PO (08:59)
[2025-05-06] MEDS: DAPAGLIFLOZIN PROPANEDIOL 5 MG TABLET 10 MG PO (08:59)
--- NOTE | 2025-05-06 09:39 | PC.SS ---
0930-Pt is a 59 yo male who presented to the ER shortness of breath on 05/04/25. Per ER note, pt states symptoms have been progressively worsening, worse with exertion and improved somewhat at rest. Pt admitted to methamphetamine use was 2?3 days ago prior to entering the ED. Occasional alcohol, smokes cigarettes. No known drug allergies. ASW attempted to met pt face to face but pt was sleeping. ASW contacted the Person to Notify Vick Cheung [phone] on the face sheet to gather information to complete the initial assessment. Vick reported that he is unaware who the pts PCP is, but stated his speciality physican is Dr. Jenkins. Vick reports that pts Pharmacy is [facility] on [address], he does not use DME and does his own ADLs; denies using O2 at home. Vick reports the pt has children but has no way to get a hold of them. Vick reports the pt is a Full Code and if there comes a time the pt cannot make his own decisions, Vick would be the Decision Maker. Vick states the pt would come home with Home health if need be and reports the pt does not want to go to a SNF. D/c plan: Return home; with home health if needed Decision Maker: Vick Cheung [phone] Transportation: Vick Cheung [phone]
--- NOTE | 2025-05-06 09:57 | ESPR_ITS ---
Documentation for date of: 05/06/25 Subjective Subjective Interval history: The patient is evaluated bedside, no overnight events reported, reported subjective improvement in shortness of breath, currently seen saturating well on room air. Patient is net negative -1390 mL overnight. Noted improvement in renal function, creatinine 1.5, following diuresis for cardiorenal syndrome. Recommend to switch lisinopril to Entresto as renal function improved, will need 36-hour washout period prior to starting Entresto. ? Echocardiogram showe Mild LVH, Severe systolic dysfunction. Severe global hypokineses. Estimated EF 30-35%. Grade II duastolic dysfunction.Normal RV size. Mild RV systolic dysfunction. Trace MR and PI, Mild TR and AI,, Mild AV sclerosis without stenosis. No pericardial effusion. IVC normal size. The patient can be discharged from cardiology standpoint, recommended to be discharged on aspirin 81 mg daily, Coreg 25 mg twice daily, Entresto twice daily, spironolactone 25 mg daily, and dapagliflozin 10 mg daily. Recommend Bumex 1 mg daily. Recommend to follow-up with his parcel post delivery within 1 week of discharge from hospital. Exam Vital Signs Temp Pulse Resp BP Pulse Ox O2 Del Method O2 Flow Rate 97.1 F 99 18 140/107 H 96 Nasal Cannula 1 05/06/25 08:00 05/06/25 08:59 05/06/25 08:00 05/06/25 08:59 05/06/25 08:00 05/06/25 08:00 05/06/25 06:38 FiO2 30 05/06/25 04:00 Narrative Exam General: AOx3, cooperative Skin: Intact, no cyanosis noted. Noted extensive tattoos over anterior chest back and arms. Trace pitting edema. HEENT: Atraumatic/normocephalic, ADALBERTO, neck supple Heart: RRR, S1 and S2 without clicks or murmurs Lungs: Noted bilateral rhonchi on auscultation, saturating well on room air Abdomen: Soft, nontender. Bowel sounds present . Vascular: Peripheral pulses palpable Neuro: No focal neurological deficits noted. Objective Labs 05/06/25 05:42 05/06/25 05:42 Labs: Laboratory Results - last 24 hr 05/06/25 05:42 WBC 16.2 H RBC 6.22 H Hgb 17.9 H* D Hct 54.3 H MCV 87 MCH 28.8 MCHC 33.0 RDW Std Deviation 43.4 Plt Count 301 D Neut % (Auto) 74 Lymph % (Auto) 14 Lyon % (Auto) 9 Eos % (Auto) 2 Baso % (Auto) 1 Neut # (Auto) 12.0 H Lymph # (Auto) 2.2 Lyon # (Auto) 1.5 H Eos # (Auto) 0.4 Baso # (Auto) 0.1 Immature Gran # (Auto) 0.09 H Absolute Nucleated RBC 0.00 Immature Gran % 1 H Nucleated RBC % 0 Sodium 135 L Potassium 3.7 Chloride 97 L Carbon Dioxide 24.8 Anion Gap 13 BUN 25 H Creatinine 1.5 H Estim Creat Clear Calc 41.6 L eGFR 53 L BUN/Creatinine Ratio 17 Glucose 121 H Calculated Osmolality 275 Calcium 9.9 Corrected Calcium 9.9 Phosphorus 3.3 Magnesium 2.0 Total Bilirubin 0.5 AST 20 ALT 18 Alkaline Phosphatase 121 H Total Protein 7.4 Albumin 4.2 Globulin 3.2 Albumin/Globulin Ratio 1.3 ABG Interpretation ABG results: 05/04/25 04:46 ABG pH 7.45 ABG pCO2 35 ABG pO2 71 L ABG HCO3 24 ABG O2 Saturation 94 ABG Base Excess 1 Quality Measures Quality Measures VTE prophylaxis Assessment & Plan Assessment Current Active Medications: Generic Name Dose Route Start Last Admin Trade Name Freq PRN Reason Stop Dose Admin Acetaminophen 650 mg 05/04/25 06:08 Acetaminophen 325 Mg Tablet PO 06/03/25 06:07 Q6H PRN Fever >100.4 Acetaminophen 650 mg 05/04/25 06:08 05/05/25 21:36 Acetaminophen 325 Mg Tablet PO 06/03/25 06:07 650 mg Q6H PRN Administration PAIN SCALE 1-3 (mild Albuterol/Ipratropium 3 ml 05/04/25 23:00 05/06/25 06:37 Albuterol/Ipratropium (Duoneb) Rt Sarah 3 Ml Nebu INH 06/03/25 22:59 3 ml Q8HRRT KISHA Administration Aspirin 81 mg 05/04/25 09:00 05/06/25 08:58 Aspirin Ec 81 Mg Tabec PO 06/03/25 08:59 81 mg QDAY KISHA Administration Atorvastatin Calcium 40 mg 05/05/25 21:00 05/05/25 21:36 Atorvastatin Calcium 20 Mg Tablet PO 06/04/25 20:59 40 mg HS KISHA Administration Carvedilol 25 mg 05/04/25 08:00 05/06/25 08:58 Carvedilol 12.5 Mg Tablet PO 06/03/25 07:59 25 mg BIDWM KISHA Administration Dapagliflozin 10 mg 05/05/25 14:30 05/06/25 08:59 Dapagliflozin Propanediol 5 Mg Tablet PO 06/04/25 14:29 10 mg QAM KISHA Administration Furosemide 40 mg 05/05/25 18:00 05/06/25 05:23 Furosemide Inj 10 Mg/Ml 4ml Vial IVP 06/04/25 17:59 40 mg BIDD KISHA Administration Heparin Sodium (Porcine) 5,000 unit 05/05/25 14:00 05/06/25 05:24 Heparin Sod Inj 5000 Unit/Ml Vial SC 05/19/25 13:59 5,000 unit Q8HR KISHA Administration Lisinopril 20 mg 05/05/25 09:00 05/06/25 08:59 Lisinopril 20 Mg Tablet PO 06/04/25 08:59 20 mg QDAY KISHA Administration Nitroglycerin 0.4 mg 05/04/25 06:31 Nitroglycerin 0.4 Mg Subl Btl #25 SL Q5MIN PRN CHEST PAIN Ondansetron HCl 4 mg 05/04/25 06:08 Ondansetron Inj 2 Mg/Ml Inj 2 Ml IVP 06/03/25 06:07 Q6H PRN NAUSEA OR VOMITING Protocol Spironolactone 25 mg 05/05/25 10:15 05/06/25 08:59 Spironolactone 25 Mg Tablet PO 06/04/25 10:14 25 mg QDAY KISHA Administration Plan The patient is a 59-year-old male with a past medical history of HFrEF, diagnosed in 2023, CKD stage III, diabetes, hypertension, substance abuse disorder including methamphetamine, noncompliance with medications, chronic smoker who presented to the ED complaining of worsening shortness of breath for the past 4 days. Patient reported that he went for a swim in the river 4 days ago and after that has been feeling short of breath. Patient endorses he is established with parcel post delivery in [place], and had echocardiogram and treadmill stress test done a few weeks ago, but has not followed up with appointment for results. Patient reported he has orthopnea PND and dyspnea on exertion. But denied chest pain or pressure. Denied fever or cough. Denies sputum production. Patient does have extensive history of smoking, has never been formally diagnosed with COPD, but has been using inhalers occasionally which do provide some respiratory relief. In the ED, initial vitals on presentation were blood pressure 197/127, pulse 124/min, respiratory 36/min, saturating 95% on room air, later patient was noted to be hypoxic in the ED and was started on BiPAP, currently saturating 93% on BiPAP 30% FiO2 10/15. EKG was done in the ED which shows T wave inversion in the lateral leads, consistent with old EKG changes. No new ischemic changes noted on EKG per my interpretation. Initial labs showed leukocytosis WBC 15.2, polycythemia hemoglobin 16.2 platelets 313, ESR 31, negative D-dimers, ABG was done this morning which shows hypoxia ABG PO271 on 30% FiO2, ABG SpO2 94%. CHEM panel shows normal sodium and potassium but elevated creatinine 1.9, EGFR 40 of note patient does have some elevation of creatinine in the past, baseline seems to be around 1.6, A1c 6.3%, noted slightly elevated troponin 0.081, already peaked, elevated BNP 45, negative procalcitonin, urinalysis unremarkable, U tox positive for methamphetamines. Chest x-ray shows mild enlargement of cardiac contour no pneumonia or mayra pulmonary edema seen. In the ED patient was given furosemide 80 mg IV x 1, IV morphine 2 mg x 1, nitroglycerin patch was placed, clonidine 0.2 mg x 1 metoprolol tartrate 50 mg x 1, resumed home medications including carvedilol 25 mg twice daily aspirin 81 mg, electrolytes including potassium and magnesium were replaced. Past medical history: History of heart failure with reduced action fraction, EF 20 to 25% on previous echocardiogram in 2023, CKD stage III, diabetes mellitus history of noncompliance with medications, hypertension, substance abuse disorder including mental phentermine, chronic smoker more than [id number] smoking history. Family history: History of cardiac disorders in mom, with a heart attack in her 50s Social history: Patient lives alone, endorsed occasional alcohol use, methamphetamine use, last use was 2 days ago, and smoking. More than 20 pack years. Home medications: Carvedilol, lisinopril, aspirin and Lasix. History of noncompliance with medications. Problems: 1. NSTEMI likely type II 2. 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 Acute hypoxic respiratory failure due to chf 4. Hypertensive urgency 5. Methamphetamine abuse 6. Chronic smoker , COPD 7. Prediabetes 8. History of hypertension 9. WILMA on CKD, cardiorenal syndrome now resolved. 10. Polycythemia, likely 2/2 chronic smoking Patient complaining of sudden onset chest pain 4 days ago, had orthopnea PND and dyspnea on exertion. Currently NYHA class IVsymptoms, patient might require workup of chronic artery disease and ischemia, previous stress testing done at parcel post delivery office outpatient, recommend getting medical records.Patient stated his symptoms started after he went for a swim in the river. But denied any fever or cough, does not think he has pneumonia. Chest x-ray negative for pneumonia, did notice leukocytosis possibly reactive. Symptoms likely related to acute on chronic CHF, prior echocardiogram from 2023 shows severe systolic dysfunction, severe global hypokinesis, estimated EF 25 to 30%, stage II diastolic dysfunction. Mild AV sclerosis without stenosis. Patient received 80 mg IV Lasix x 1 in the ED. He reported improvement in symptoms, currently on BiPAP. Currently started on beta-blockers and JANIE inhibitors as part of GDMT, will continue guideline directed medical therapy as blood pressure tolerates. The patient denied any diagnosis of COPD or asthma in the past, but has a history of chronic smoking over 20 pack years, reported he has been prescribed inhalers in the past which did help with his symptoms, currently physical exam pertinent for basal crackles as well as wheezing in the mid to lower lung zones. Consider COPD, if patient continues to be short of breath might benefit from nebulizations in addition to diuresis. Denied having any chest pain or pressure on this occurrence, also denied history of prior myocardial infarction in the past. Did endorse methamphetamine abuse, echocardiogram also shows global hypokinesis and severe systolic dysfunction, consistent with cardiomyopathy likely in the setting of methamphetamine abuse. Patient does have risk factors for coronary artery disease, will benefit from outpatient workup to rule out ischemic heart disease. EKG was done in the ED which shows T wave inversion in the lateral leads, consistent with old EKG changes. Slight troponin elevation already peaked at 0.08, likely type II NSTEMI in the setting of hypoxia. Counseled regarding discontinuing methamphetamine, discontinuing smoking. Patient has no reported history of diabetes, A1c 6.3%, prediabetic range, no previous A1c on file, patient would benefit from addition of SGLT2 as well as diabetic education and risk factor modification. 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 Baseline creatinine seems to be around 1.6, creatinine 1.9 on admission, acute on chronic kidney injury likely secondary to cardiorenal syndrome given EF 25%, will continue with diuresis.Noted improvement in renal function, creatinine 1.5, following diuresis for cardiorenal syndrome. Recommendations: ? Echocardiogram showe Mild LVH, Severe systolic dysfunction. Severe global hypokineses. Estimated EF 30-35%. Grade II duastolic dysfunction.Normal RV size. Mild RV systolic dysfunction. Trace MR and PI, Mild TR and AI,, Mild AV sclerosis without stenosis. No pericardial effusion. IVC normal size. ? Strict intake and output monitoring ? Continue monitoring electrolytes, avoid hypomagnesemia and hypokalemia dependence arrhythmias. ? Currently symptoms NYHA class IV, patient might require workup of chronic artery disease and ischemia, previous stress testing done at parcel post delivery office outpatient, recommend getting medical records. ? Fluid restriction to 1200 cc daily, target upto 1.5 L net negative urine output per day. ? Recommend to switch lisinopril to Entresto as renal function improved, will need 36-hour washout period prior to starting Entresto. ? The patient can be discharged from cardiology standpoint, recommended to be discharged on aspirin 81 mg daily, Coreg 25 mg twice daily, Entresto twice daily, spironolactone 25 mg daily, and dapagliflozin 10 mg daily. Recommend Bumex 1 mg daily orally at discharge Recommend to follow-up with cardiology within 1 week of discharge from hospital. Rest of the management deferred to primary team. Thank you for cardiology consultation. We appreciate the opportunity to participate in this patient's care. Will continue to follow-up on this patient, if patient stays. This case was discussed with parcel post delivery, Dr. Paul. Robert Reed MD PG3 Attending Provider Attestation/Addendum I have personally seen and examined the patient separately on the above date of service and discussed the plan of care with the resident. I reviewed the resident Dr. Jones consultation progress note and agree with the resident findings and plan in the note above and have also edited the documentation to reflect my findings and plan. Percy Paul M.D. Interventional Cardiology
--- NOTE | 2025-05-06 10:01 | PD.RESDS ---
Planned Discharge Date 05/06/25 DS: Providers Provider Date of admission: 05/04/25 06:10 Primary care physician: Dennis Caballero MD Admitting Provider: Иван Hines MD Attending Provider on Admission: Иван Hines MD Consults: 05/04/25 04:12 Referral Respiratory Therapy Stat Comment: BiPAP 05/04/25 11:06 Consult to Cardiology Routine Comment: CHF exacerbation Consulting Provider: Percy Paul Attending Provider on DC: Jarrett Rodriguez DO Discharging Provider: Jarrett Rodriguez DO DS: Diagnosis Problem List Completed Was Problem List Reviewed/Reconciled?: Yes Hospital Course Hospital Course Hospital course: 59-year-old male with HFrEF (EF 25?30%), HTN, meth use, and medication noncompliance presenting with acute hypoxic respiratory failure, hypertensive emergency, and type 2 NSTEMI. Admitted for Acute hypoxic respiratory failure 2/2 HFrEF exacerbation. In the ED, he was hypertensive to 211/149 with HR 124, RR 22, SpO2 low requiring BiPAP. Labs notable for WBC 15.2, Cr 1.9 (baseline ~1.6?1.7), troponin 0.081, BNP 485, utox positive for meth. CXR showed vascular congestion. He received BiPAP, furosemide 80 mg IV, morphine 2 mg IV, NTG topical, clonidine 0.2 mg PO, metoprolol 50 mg PO. In the hospital cardiology was consulted, he was started on lasix and GDMT for heart failure. And ECHO showed 30-35% EF. His troponins resolved, his edema resolved as well with lasix and his WILMA improved. Patient had improved oxygenation off of BIPAP and deemed safe for discharge. Discharge Instructions: Follow-up with your PCP within 1 week You were noticed to have elevated blood level ( hemoglobin ) you will need to address this condition with your doctor Follow up with a Kidney doctor within one to 2 weeks from discharge to continue monitoring you chronic kidney disease Follow up with your industrial roofer helper within one week also follow up on the ECHO read Take your new medicines, Bumex, Lipitor, Farxiga and Aldactone, as prescribed Take your medicines as prescribed Return to ED if your symptoms worsen or return #Acute hypoxic respiratory failure 2/2 HFrEF exacerbation # Acute on chronic systolic (congestive) heart failure # Hypertensive emergency - Improving # NSTEMI type 2 #Polycythemia - resolved # Acute kidney injury on CKD # Cardiorenal Syndrome # Methamphetamine use disorde # Tobacco use disorder Patient's plan and care discussed with my attending, Dr. Rodriguez, and supervising residents Maylin Whitman MD, and MD Sunny Centeno MD Internal Medicine PGY-1 Time Spent with Patient Time attestation: Total time spent providing and/or coordinating discharge services: Time spent: Greater than 30 minutes Exam Vital Signs Temp Pulse Resp BP Pulse Ox O2 Del Method O2 Flow Rate 97.1 F 99 18 140/107 H 96 Nasal Cannula 1 05/06/25 08:00 05/06/25 08:59 05/06/25 08:00 05/06/25 08:59 05/06/25 08:00 05/06/25 08:00 05/06/25 06:38 FiO2 30 05/06/25 04:00 Narrative Exam General: AOx3, cooperative Skin: Intact, no cyanosis noted. Noted extensive tattoos over anterior chest back and arms. Trace pedal edema HEENT: Atraumatic/normocephalic, ADALBERTO, neck supple Heart: RRR, S1 and S2 without clicks or murmurs. No JVD noted Lungs: Cough improved , overall improved breath sounds clear to auscultation, 2L nasal cannula 99% Abdomen: Soft, nontender. Bowel sounds present . Vascular: Peripheral pulses palpable Neuro: No focal neurological deficits noted. Discharge Plan Plan Patient Disposition: HOME (Self Care) Patient condition on transfer: Stable Care Plan Goals: Discharge instructions Follow-up with your PCP within 1 week You were noticed to have elevated blood level ( hemoglobin ) you will need to address this condition with your doctor Follow up with a Kidney doctor within one to 2 weeks from discharge to continue monitoring you chronic kidney disease Follow up with your industrial roofer helper within one week also follow up on the ECHO read Take your new medicines, Bumex, Lipitor, Farxiga and Aldactone, as prescribed Take your medicines as prescribed Return to ED if your symptoms worsen or return Prescriptions/Referrals Prescriptions/Med Rec: New spironolactone [Aldactone] 25 mg tablet 25 mg PO QDAY 30 Days Qty: 30 0RF Rx Instructions: Take one tablet by mouth every day atorvastatin [Lipitor] 40 mg tablet 40 mg PO QPM 14 Days Qty: 14 0RF Rx Instructions: Take one tablet by mouth at bedtime dapagliflozin propanediol [Farxiga] 10 mg tablet 10 mg PO QDAY 14 Days Qty: 14 0RF Rx Instructions: Take one tablet by mouth every day bumetanide 1 mg tablet 1 mg PO QDAY 14 Days Qty: 14 0RF Rx Instructions: Take one tablet by mouth every day Continued lisinopril 20 mg tablet 20 mg PO QDAY Qty: 30 3RF carvedilol [Coreg] 25 mg tablet 25 mg PO Q12H Qty: 60 3RF Rx Instructions: must administer with a meal/food cyclobenzaprine 10 mg tablet 10 mg PO BID PRN (Reason: muscle spasm) Qty: 10 0RF aspirin 81 mg tablet,chewable 81 mg PO .Am Patient Comments: TAKE 1 TABLET BY MOUTH EVERY DAY Discontinued furosemide [Lasix] 20 mg tablet 20 mg PO QAM Qty: 30 0RF Referrals: Dennis Caballero MD [Primary Care Provider] - Patient/Caregiver Discharge Instructions Discharge Activity: activity as tolerated Education Materials: Coping with Kidney Failure, Coping with Heart Failure, Heart Failure Dc Print Language: Sammarinese Stand Alone Forms: [employer] Award Info., Patient Portal Info Letter Discharge Order Discharge Orders: Discharge (Routine); Ordered 05/06/25 Ordered By: Navid Zuniga Quality Discharge Quality Measures VTE prophylaxis MD Attestestation MD Attestation I have discussed and was present for the essential components of the discharge history, physical examination, diagnosis, and discharge treatment plan with the resident. I agree with the patient's discharge care as documented by the resident and amended herein by me. Faraz Rodriguez DO. The patient understood all discharge instructions, all questions were answered satisfactorily. The patient was instructed to return to the Emergency Department is symptoms worsened or persisted. Patient will be discharged on Bumex per cardiology recommendation. The patient was stable, afebrile, felt much improved, no shortness of breath, on room air at time of discharge home. Although this document has been carefully reviewed, there may still be some phonetic and other typographical errors. These errors are purely grammatical due to imperfections in the software program and should not be construed in any way to compromise the substance of the patient's medical care during this visit.
--- NOTE | 2025-05-06 11:02 | PC.NURSE ---
MD notified of no orders for echo, states patient may follow up outpatient with social services aide. MD also aware of BP 140/107, still okay to discharge per MD.
== END 2025-05-06 13:30 | disposition home or self-care (01) | DRG 194 ==
LOC: SERX 06:05 → SERHOLD 06:52 → S2NX 10:13
PROVIDERS: Student in an Organized Health Care Education/Training Program; Admitting Provider Student in an Organized Health Care Education/Training Program; Emergency Provider Emergency Medicine; PCP Family Medicine; Visit Provider Student in an Organized Health Care Education/Training Program
DX: I13.0 Hypertensive heart and chronic kidney disease with heart failure and stage 1 through stage 4 chronic kidney disease, or unspecified chronic kidney disease (principal); F17.210 Nicotine dependence, cigarettes, uncomplicated; I16.1 Hypertensive emergency; I21.A1 Myocardial infarction type 2; N18.30 Chronic kidney disease, stage 3 unspecified; N17.9 Acute kidney failure, unspecified; Z71.6 Tobacco abuse counseling; F15.10 Other stimulant abuse, uncomplicated; D75.1 Secondary polycythemia; E78.5 Hyperlipidemia, unspecified; I42.0 Dilated cardiomyopathy; R73.03 Prediabetes; J44.9 Chronic obstructive pulmonary disease, unspecified; J96.21 Acute and chronic respiratory failure with hypoxia; I50.43 Acute on chronic combined systolic (congestive) and diastolic (congestive) heart failure; Z79.82 Long term (current) use of aspirin; Z79.899 Other long term (current) drug therapy; Z91.148 Patient's other noncompliance with medication regimen for other reason
CPT/HCPCS: 36415; 36600; 71045; 80048; 80053; 80061; 80076; 80307; 80320; 81001; 82248; 82728; 82803; 83036; 83540; 83550; 83605; 83690; 83735; 83880; 84100; 84145; 84443; 84484; 85025; 85379; 85652; 86140; 87040; 87400; 87811; 93005; 93306; 94640; 94660; 96374; 96375; 99284; A9270; J1644; J1938; J2270; J2470; J3475; J8499; G0480

== ENCOUNTER 2025-08-11 22:34 | Emergency (ER) | payer MEDICAID, SELFPAY ==
[2025-08-11 22:35] VITALS: BMI 26.5
--- NOTE | 2025-08-11 22:47 | XR_ITS ---
Examination: Wrist, right right 2 views 3 views Technique: Wrist AP, lateral 2 views Date and time of exam: August 11, 2025, 1110 hours INDICATIONS: Wrist pain post basketball injury 2 days ago FINDINGS: Significant osteoarthritis No acute fracture No foreign body IMPRESSION: No acute fracture
--- NOTE | 2025-08-11 22:47 | XR_ITS ---
EXAMINATION: Right elbow 2 views TECHNIQUE: AP lateral right elbow 2 views Date and time: August 11, 2025, 11:17 p.m. INDICATIONS: Injury to the elbow 2 days ago, elbow pain. FINDINGS: Moderate elbow osteoarthritis No acute fracture Old bone density adjacent to the medial humeral condylar region IMPRESSION: No acute fracture Recommend short-term follow-up given the elbow effusion, as clinically warranted
--- NOTE | 2025-08-11 22:47 | XR_ITS ---
Examination: Duplex scan of the upper extremity, unilateral right Date and time of exam: August 11, 2025, 11:33 p.m. INDICATIONS: Right arm pain beginning 2 days ago Technique: Duplex scan of the extremity veins using B-mode/grayscale imaging and Doppler spectral analysis and color flow Attention is directed to internal echogenicity, compression and augmentation involving these veins, color flow assessment, spectral analysis Findings: Major deep venous structures in the extremity demonstrate normal course and caliber. No diagnostic visualization of the ulnar vein There is no evidence of deep vein thrombosis. Normal color flow and spectral analysis Impression: No DVT demonstrated
[2025-08-11 22:49] VITALS: BP 165/91; PULSE 89; RESP 20; TEMP 36.9; O2SAT 97
[2025-08-11 23:20] LABS: Uric Acid 7.5 mg/dL (3.7-9.2)
[2025-08-12] MEDS: HYDROcodone/APAP 5/325 TABLET 1 TAB PO (00:05)
[2025-08-12] MEDS: KETOROLAC INJ 60 MG/2 ML VIAL 30 MG IM (02:16)
[2025-08-12 02:20] VITALS: BP 135/76; PULSE 76; RESP 16; TEMP 36.8; O2SAT 98
--- NOTE | 2025-08-12 04:01 | PD.EDEXREM ---
ED Extremity Problem RME/HPI General Chief complaint: Extremity Problem,Nontraumatic Stated complaint: RIGHT ARM PAIN AFTER PLAYING BASEBALL Time Seen by Provider: 08/11/25 22:36 Arrival date/time: 08/11/25 22:34 This is a case of 60-year-old male with no medical history came in in the emergency room due to right elbow and right wrist for 5 days after playing basketball due to worsening of the symptoms now with right arm pain and right shoulder pain thus patient decided to sought consult here in the emergency room denies any numbness weakness tingling sensation denies any swelling or redness denies any other symptoms Limitations: no limitations Related Data Home Medications ?Medication ?Instructions ?Recorded ?Confirmed aspirin 81 mg chewable tablet 81 mg PO .Am 05/04/25 05/04/25 Previous Rx's ?Medication ?Instructions ?Recorded carvedilol 25 mg tablet (Coreg) 25 mg PO Q12H #60 tabs 09/28/23 lisinopril 20 mg tablet 20 mg PO QDAY #30 tabs 09/28/23 cyclobenzaprine 10 mg tablet 10 mg PO BID PRN muscle spasm #10 01/20/25 tabs hydrocodone 5 mg-acetaminophen 325 1 tab PO Q6H PRN pain #16 tabs 08/12/25 mg tablet methylprednisolone 4 mg tablets in 4 mg PO QDAY #21 tabs 08/12/25 a dose pack (Medrol (Aris)) Allergies Allergy/AdvReac Type Severity Reaction Status Date / Time No Known Allergies Allergy Verified 05/04/25 03:14 Review of Systems Review of Systems Systems Reviewed: All systems reviewed, normal except as documented Constitutional Constitutional: Reports system reviewed and no additional complaints, except as documented and Reports as per HPI ENT Ears, Nose, Mouth, and Throat: Denies neck pain Cardiovascular Cardiovascular: Reports system reviewed and no additional complaints, except as documented and Reports as per HPI Respiratory Respiratory: Reports system reviewed and no additional complaints, except as documented and Reports as per HPI Gastrointestinal Gastrointestinal: Reports system reviewed and no additional complaints, except as documented and Reports as per HPI Musculoskeletal Musculoskeletal: Reports system reviewed and no additional complaints, except as documented, Reports as per HPI, Denies abnormal gait, Reports arthralgias, Denies atrophy, Denies back pain, Denies deformity, Denies joint swelling, Denies limited range of motion, Denies loss of height, Denies muscle cramps, Denies muscle weakness, Denies myalgias, Denies neck pain, Denies numbness, Denies radiating pain into limb, Denies stiffness and Denies tingling Neurologic Neurologic: Reports system reviewed and no additional complaints, except as documented, Reports as per HPI, Denies abnormal gait, Denies numbness and Denies tingling Past Medical History Past Medical History NEUROLOGIC: Negative Neurological Disorders CARDIAC: Positive Congestive Heart Failure, Cardiomyopathy, Edema and Hypertension; Negative Cardiac Disorders RESPIRATORY: Negative Chronic Obstructive Pulmonary Disease (COPD) GASTROINTESTINAL: Negative Gastrointestinal Disorders GENITOURINARY: Negative Renal Disease MUSCULOSKELETAL: Positive Arthritis ENDOCRINE: Negative Diabetes Mellitus Type 1 or Diabetes Mellitus Type 2 PSYCHO/SOCIAL: Positive Recreational Drug Use Social History SMOKING STATUS: Current every day smoker ED Exam General Limitations: Present no limitations General appearance: Present alert, in no apparent distress and other (Patient is awake alert oriented not in distress nontoxic looking well-hydrated well-nourished) Head Head exam: Present atraumatic; Absent normocephalic or normal inspection Eye Eye exam: Present normal appearance, PERRL and EOMI ENT ENT exam: Present normal exam, normal oropharynx and mucous membranes moist Neck Neck exam: Present normal inspection, full ROM and trachea midline; Absent tenderness, meningismus, lymphadenopathy or thyromegaly Chest Chest inspection: Present normal inspection and symmetric chest wall rise; Absent tenderness Respiratory Respiratory exam: Present normal lung sounds bilaterally; Absent respiratory distress, wheezes, stridor, accessory muscle use or prolonged expiratory phase Cardiovascular Cardiovascular exam: Present regular rate, normal rhythm and normal heart sounds; Absent bradycardia, tachycardia, irregular rhythm, systolic murmur or diastolic murmur Abdominal Exam Abdominal exam: Present soft and normal bowel sounds; Absent distention, tenderness, guarding, rebound, rigidity, diminished bowel sounds, hyperactive bowel sounds, hypoactive bowel sounds or organomegaly Extremities Exam Extremities exam: Present normal inspection and full ROM Expanded Upper Extremity Exam Shoulder exam: Present normal inspection and full ROM; Absent tenderness or swelling Arm exam: Present normal inspection and full ROM; Absent tenderness or swelling Elbow exam: Present tenderness, swelling and other (ROM limited due to pain pulses were full and equal capillary refill less than 2 seconds sensory intact); Absent abrasion, laceration, ecchymosis, deformity, crepitus, dislocation, erythema, effusion, pain w/ pronation/supination or tenderness over radial head Forearm/Wrist exam: Present tenderness, swelling and other (ROM limited due to pain pulses were full and equal capillary refill less than 2 seconds sensory intact); Absent abrasion, laceration, ecchymosis, deformity, crepitus, dislocation, erythema, tenderness over anatomical snuff box or pain with axial thumb loading Hand exam: Present normal inspection and full ROM; Absent tenderness or swelling Back Exam Back exam: Present normal inspection and full ROM Neurological Exam Neurological exam: Present alert, oriented X3, CN II-XII intact, normal gait and reflexes normal; Absent motor sensory deficit Psychiatric Psychiatric exam: Present normal affect and normal mood Skin Skin exam: Present warm, dry, intact and normal color Course Quality Measures none Orders Category Date Time Status sling [Splint / Immobilizer] STAT Care 08/12/25 00:39 Completed US venous doppler UE RT Stat Exams 08/11/25 22:47 Taken XR elbow RT 2V Stat Exams 08/11/25 22:47 Completed XR wrist RT 2V Stat Exams 08/11/25 22:47 Completed Uric Acid Stat Lab 08/11/25 22:58 Completed HYDROcodone*/APAP 5/325 [[place] 5/325] Med 08/11/25 23:23 Discontinued 1 tab PO X1 ONE Ketorolac Inj [Toradol Inj] Med 08/12/25 02:07 Discontinued 30 mg IM X1 ONE Vital Signs Vital signs: Vital Signs Temperature 98.5 F 08/11/25 22:49 Pulse Rate 89 08/11/25 22:49 Respiratory Rate 20 08/11/25 22:49 Blood Pressure 165/91 H 08/11/25 22:49 Pulse Oximetry (%) 97 08/11/25 22:49 Oxygen Delivery Method Room Air 08/11/25 22:49 Oxygen saturation is 97% in room air Extremity Problem MDM Narrative MDM Narrative:: This is a case of 60-year-old male with no medical history came in in the emergency room due to right elbow and right wrist for 5 days after playing basketball due to worsening of the symptoms now with right arm pain and right shoulder pain thus patient decided to sought consult here in the emergency room denies any numbness weakness tingling sensation denies any swelling or redness denies any other symptoms physical examination patient is awake alert oriented not in distress nontoxic looking well-hydrated well-nourished noted moderate tenderness and swelling on the right elbow and right wrist but no crepitation no deformity no cellulitis no redness ROM is limited due to pain pulses were full and equal capillary refill less than 2 seconds sensory intact patient shoulder exam and right arm exam is normal and unremarkable x-ray of the right wrist and right elbow were normal no fracture no dislocation 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 ultrasound of the right upper arm negative for DVT uric acid is normal based on my physical examination and history patient pain is due to osteoarthritis he was given [place] and Toradol for pain here and was prescribed with [place] and Medrol pack patient was advised to follow-up with PCP in 2 days for reevaluation and to be referred to resource efficiency manager and orthopedic surgeon for further evaluation and treatment of osteoarthritis of the right elbow worsening symptoms or any emergent concerns such as numbness weakness tingling sensation return to the emergency room immediately or call [phone] Patient was discharged with comfortable condition walking with stable gait. Patient verbalized no further complains explained diagnosis and answered patient question. Patient is comfortable with the proposed management plan including the need to follow up with his/her primary care physician and any specialist if applicable Discussed patient for any urgent condition or worsening sx, He/She needed to go to emergency room immediately or call 911. Patient acknowledge the responsibility to follow up as instructed and to monitor her/his symptoms. For any persistence of the symptoms for more than 3-5 days return precaution advised. Discussed the result of the test and was given printed discharge instruction Patient data External records reviewed:: [facility] previous records Clinical information provided by:: patient Social determinants that could affect healthcare access:: none Patient has the following chronic illnesses:: None How is presenting disease/condition affected by chronic disease/condition?: no chronic disease Evaluation data The following diagnostics were reviewed and interpreted by me:: lab results and radiology exam(s) Lab and/or radiology exams considered but not ordered:: Reviewed Interpretation Summary: Reviewed Medications / Prescriptions Medications or Prescriptions considered but not ordered:: Given Medication administrations:: Medication Administration History Discontinued Medications Hydrocodone Bitart/Acetaminophen (Hydrocodone/Apap 5/325 Tablet) 1 tab PO X1 ONE Stop: 08/11/25 23:24 Last Admin: 08/12/25 00:05 Dose: 1 tab Documented By: SANDEEP Ketorolac Tromethamine (Ketorolac Inj 60 Mg/2 Ml Vial) 30 mg IM X1 ONE Stop: 08/12/25 02:08 Last Admin: 08/12/25 02:16 Dose: 30 mg Documented By: CB Given Consultations Consultation(s) initiated? (list below): No Diagnosis Extremity Problem Differential Diagnosis: cellulitis, deep vein thrombosis of lower extremity and other (Sprain strain osteoarthritis) Most likely diagnosis given after review of the tests above:: Osteoarthritis Admission Indicated Admission indicated?: not indicated Explain why admission is indicated or not indicated:: Not indicated Admission Request Was there a request for admission?: No Admission Attestation Admission request attestation: Not indicated Disposition Plan Disposition Plan: Discharge Discharge Attestation Discharge Attestation: The patient and all family members were given an opportunity to ask questions and understood the discharge instructions. Discharge instructions specifically effects, indications for sooner follow up or return to the emergency department, and the expected course of current diagnosis. Patient condition: Stable Discharge Plan Plan Patient Disposition: HOME (Self Care) Patient condition on transfer: Stable Prescriptions/Referrals Prescriptions/Med Rec: New hydrocodone-acetaminophen 5-325 mg tablet 1 tab PO Q6H MDD max 4 tabs per day PRN (Reason: pain) Qty: 16 0RF methylprednisolone [Medrol (Aris)] 4 mg tablets,dose pack 4 mg PO QDAY Qty: 21 0RF No Action lisinopril 20 mg tablet 20 mg PO QDAY Qty: 30 3RF carvedilol [Coreg] 25 mg tablet 25 mg PO Q12H Qty: 60 3RF Rx Instructions: must administer with a meal/food cyclobenzaprine 10 mg tablet 10 mg PO BID PRN (Reason: muscle spasm) Qty: 10 0RF aspirin 81 mg tablet,chewable 81 mg PO .Am Patient Comments: TAKE 1 TABLET BY MOUTH EVERY DAY Referrals: Chris Gonzales PA-C [Primary Care Provider] - In 1 week Problem List Clinical Impression: Elbow pain, Pain, wrist, Osteoarthritis Patient/Caregiver Discharge Instructions Education Materials: ED Arthralgia, ED Osteoarthritis, ED Sling, ED RICE Additional Instructions: Follow-up with your primary care physician in 2 days for reevaluation and to be referred to osteoarthritis and resource efficiency manager for further evaluation and treatment of osteoarthritis of your elbow and wrist worsening symptoms or any emergent concerns such as numbness weakness return to the emergency room immediately or call 911 take your medication as directed ice pack and warm compress as needed for pain keep the sling in place until cleared by your primary care physician Print Language: Romanian Stand Alone Forms: Jaqueline Award Info., Patient Portal Info Letter PA/HEAD CORRECTION OFFICER Supervising Physician PA/HEAD CORRECTION OFFICER Supervising Physician: dr kelly
== END 2025-08-12 02:21 | disposition home or self-care (01) ==
PROVIDERS: Nurse Practitioner Family; Emergency Provider Emergency Medicine; PCP Physician Assistant
DX: M25.531 Pain in right wrist (principal); M19.021 Primary osteoarthritis, right elbow; M79.601 Pain in right arm; Y93.67 Activity, basketball
CPT/HCPCS: 36415; 73070; 73100; 84550; 93971; 96372; 99284; A4565; J1885; A9270